=== PATIENT | female | born 1975 | race Caucasian/White ===

== ENCOUNTER 2020-05-16 12:03 | Outpatient (REF) | payer OTHER, SELFPAY ==
[2020-05-16 12:53] LABS: COVID-19 Test Negative (Negative)
== END 2020-05-16 12:04 | disposition home or self-care (01) ==
LOC: HO.LAB 12:03
PROVIDERS: Visit Provider Internal Medicine
DX: Z20.828 Contact with and (suspected) exposure to other viral communicable diseases (principal)
CPT/HCPCS: 87635

== ENCOUNTER 2020-05-23 11:01 | Outpatient (REF) | payer OTHER, SELFPAY ==
[2020-05-23 11:29] LABS: COVID-19 Test Negative (Negative)
== END 2020-05-23 11:02 | disposition home or self-care (01) ==
LOC: HO.LAB 11:01
PROVIDERS: PCP Physician Assistant; Visit Provider Internal Medicine
DX: Z20.828 Contact with and (suspected) exposure to other viral communicable diseases (principal)
CPT/HCPCS: 87635

== ENCOUNTER 2020-06-11 12:28 | Outpatient (REF) | payer OTHER, SELFPAY ==
[2020-06-11 12:57] LABS: COVID-19 Test Negative (Negative)
== END 2020-06-11 12:29 | disposition home or self-care (01) ==
LOC: HO.EMPCOV 12:28
PROVIDERS: Visit Provider Internal Medicine
DX: Z20.828 Contact with and (suspected) exposure to other viral communicable diseases (principal)
CPT/HCPCS: 87635; C9803

== ENCOUNTER 2020-07-16 07:10 | Outpatient (REF) | payer OTHER, SELFPAY ==
[2020-07-16 08:15] LABS: COVID-19 Test Negative (Negative)
== END 2020-07-16 07:11 | disposition home or self-care (01) ==
LOC: HO.EMPCOV 07:10
PROVIDERS: PCP Physician Assistant; Visit Provider Internal Medicine
DX: Z20.828 Contact with and (suspected) exposure to other viral communicable diseases (principal)
CPT/HCPCS: 87635; C9803

== ENCOUNTER 2020-08-29 16:06 | Outpatient (REF) | payer OTHER, SELFPAY ==
--- NOTE | ~2020-08-29 | MM_ITS ---
EXAMINATION: MM SCREENING DIGITAL BREAST TOMOSYNTHESIS, BILATERAL CLINICAL INFORMATION: Screening. Asymptomatic. The lifetime risk of breast cancer based on the Tyrer-Cuzick Model is 8.4%. COMPARISON: Mammography: 04/05/2018 TECHNIQUE: Digital breast tomosynthesis is performed in both the craniocaudal and mediolateral oblique views along with computer-aided detection (CAD). Synthesized 2D images are generated from the tomosynthesis. FINDINGS: There are scattered areas of fibroglandular density (ACR BI-RADS breast composition Category b). Changes of breast reduction surgery seen and appear stable. No new abnormal dominant mass or suspicious grouping of microcalcifications identified. Within the left axilla, there is a prominent lymph node with fatty cleft and possible mild cortical thickening. MM/MM tomosynthesis screening BI IMPRESSION: 1. Stable postsurgical change related to breast reduction surgery. ASSESSMENT: BI-RADS 2: Benign RECOMMENDATION: 1. Routine annual mammography screening. This patient's information was entered into a reminder system with a target due date for their next mammogram.
== END 2020-08-29 16:07 | disposition home or self-care (01) ==
LOC: HO.MAMMO 16:06
PROVIDERS: PCP Physician Assistant; Visit Provider Physician Assistant
DX: Z12.31 Encounter for screening mammogram for malignant neoplasm of breast (principal)
CPT/HCPCS: 77063; 77067

== ENCOUNTER 2021-07-13 13:31 | Outpatient (REF) | payer OTHER, SELFPAY ==
[2021-07-13 14:03] LABS: COVID-19 Test Negative (Negative)
== END 2021-07-13 13:32 | disposition home or self-care (01) ==
LOC: HO.LAB 13:31
PROVIDERS: PCP Physician Assistant; Visit Provider Internal Medicine
DX: Z20.822 Contact with and (suspected) exposure to COVID-19 (principal)
CPT/HCPCS: 36415; 87635

== ENCOUNTER 2022-06-30 12:34 | Outpatient (REF) | payer OTHER, SELFPAY ==
[2022-06-30 12:50] LABS: MANUAL DIFF FLAG NO
[2022-06-30 13:42] LABS: Basophils Absolute Auto 0.1 X10*3/uL (0.0-0.2); Basophils Percent Auto 0.6 % (0-2); Eosinophils Absolute Auto 0.1 X10*3/uL (0.0-0.4); Eosinophils Percent Auto 0.9 % (0-4); Hematocrit 28.4 % (37.0-47.0); Hemoglobin 7.8 g/dl (12.0-16.0); Imm Gran Abs Auto 0.02 X10*3/uL (0.00-0.03); Imm Gran Pct Auto 0.2 % (0.0-0.4); Lymphocytes Absolute Auto 2.2 X10*3/uL (1.2-4.9); Lymphocytes Percent Auto 26.5 % (20-40); Mean Corpuscular HGB Conc 27.5 g/dl (31.0-35.0); Mean Corpuscular Volume 65.4 fL (80.0-98.0); Mean Platelet Volume 9.6 fL (9.4-12.3); Monocytes Absolute Auto 0.5 X10*3/uL (0.1-1.2); Monocytes Percent Auto 5.8 % (2-11); Neutrophils Absolute Auto 5.4 x10*3/uL (2.0-8.3); Platelet Count 437 X10*3/uL (160-400); Red Blood Count 4.34 X10*6/uL (4.20-5.50); Red Cell Distribution Width 17.3 % (11.0-16.0); White Blood Count 8.1 X10*3/uL (4.8-10.8)
[2022-06-30 14:43] LABS: Alanine Aminotransferase 22 U/L (0-31); Albumin Level 4.7 g/dL (3.5-5.0); Alkaline Phosphatase 47 U/L (39-117); Anion Gap 11 (12-20); Aspartate Amino Transferase 13 U/L (5-31); Bilirubin Total 0.7 mg/dL (0.0-1.0); Blood Urea Nitrogen 15 mg/dL (9-16); Calcium 9.5 mg/dL (8.4-10.2); Carbon Dioxide 25 mmol/L (22-29); Chloride 106 mmol/L (96-108); Estimated Glomerular Filt Rate > 60; Glucose Random 85 mg/dL (60-115); Potassium 4.5 mmol/L (3.3-5.1); Sodium 137 mmol/L (135-145); TSH reflex Free T4 1.15 uIU/mL (0.32-4.0); Total Protein 7.5 g/dL (6.5-8.0)
== END 2022-06-30 12:35 | disposition home or self-care (01) ==
LOC: HO.LAB 12:34
PROVIDERS: PCP Physician Assistant; Visit Provider Nurse Practitioner Family
DX: R51.9 Headache, unspecified (principal)
CPT/HCPCS: 36415; 80053; 84443; 85025

== ENCOUNTER 2022-07-01 06:36 | Outpatient (REF) | payer OTHER, SELFPAY ==
[2022-07-01 08:08] LABS: Iron 22 mcg/dL (30-160); Percent Iron Saturation 4 % (15-50); Total Iron Binding Capacity 521 mcg/dL (228-428); Unsaturated Iron Binding 499 ug/dL
[2022-07-01 08:24] LABS: Ferritin < 2 ng/mL (10-250)
== END 2022-07-01 06:37 | disposition home or self-care (01) ==
LOC: HO.LAB 06:36
PROVIDERS: PCP Physician Assistant; Visit Provider Nurse Practitioner Family
DX: D64.9 Anemia, unspecified (principal)
CPT/HCPCS: 36415; 82728; 83540

== ENCOUNTER 2022-07-07 09:03 | Day surgery (SDC) | payer OTHER, SELFPAY ==
--- NOTE | 2022-07-06 11:46 | HO.ANESPROP2 ---
Documented by User: Ines Lr NP 07/06/22 11:47 HPI - Anesthesia Eval Consult details Narrative: 47yo F for Upper Endoscopy and Colonoscopy PMFSH Active Problems Active Problems: All Active Problems (Updated 06/30/22 @ 17:25 by HUONG Sanders) Anemia (Acute) Headache (Acute) Eczema (Acute) Screening for hypothyroidism (Acute) Screening for hypercholesterolemia (Acute) Screening for diabetes mellitus (DM) (Acute) Annual physical exam (Acute) JEFFREY (generalized anxiety disorder) (Acute) GERD (gastroesophageal reflux disease) (Acute) Past Medical History Medical History Anemia Eczema JEFFREY (generalized anxiety disorder) GERD (gastroesophageal reflux disease) Family History Family History Father Esophageal cancer Diabetes Mother Ovarian cancer Kidney malignancy Maternal Grandfather Colon cancer Maternal Grandmother Lung cancer Surgical History Surgical History H/O bilateral breast reduction surgery History of section History of tubal ligation Social History Social History Alcohol intake: current Alcohol intake frequency: holidays/special occasions only Patient Tobacco Use Status: Never used Tobacco Use of substances other than those prescribed or required for medical reasons: No Are you DNR?: No Advance Directives: No Advance Directives Information Provided: Yes Cognitive needs: No Hearing needs: No Vision needs: No Meds Allergies Allergy/AdvReac Type Severity Reaction Status Date / Time No Known Allergies Allergy Verified 06/30/22 11:59 Exam Exam Date and Time: July 06, 2022 1146 Pertinent Lab Results Pertinent Lab Results: Laboratory Tests 06/30/22 06/30/22 12:48 12:48 WBC 8.1 Hgb 7.8 L Hct 28.4 L Plt Count 437 H Sodium 137 Potassium 4.5 Chloride 106 Carbon Dioxide 25 BUN 15 Creatinine 0.72 Assessment and Plan Assessment Anesthesia Assessment: Chart Reviewed Documented by User: Vaishnavi Rizvi MD 07/07/22 10:56 PMFSH Past Medical History Medical History Anemia Eczema JEFFREY (generalized anxiety disorder) GERD (gastroesophageal reflux disease) Patient : No Family History Family History Father Esophageal cancer Diabetes Mother Ovarian cancer Kidney malignancy Maternal Grandfather Colon cancer Maternal Grandmother Lung cancer Surgical History Surgical History H/O bilateral breast reduction surgery History of section History of tubal ligation History of Problems with Anesthesia: No Social History Social History Alcohol intake: current Alcohol intake frequency: holidays/special occasions only Patient Tobacco Use Status: Never used Tobacco Use of substances other than those prescribed or required for medical reasons: No Are you DNR?: No Advance Directives: No Advance Directives Information Provided: Yes Cognitive needs: No Hearing needs: No Vision needs: No Meds Allergies Allergy/AdvReac Type Severity Reaction Status Date / Time No Known Allergies Allergy Verified 06/30/22 11:59 Exam Airway Mallampati Class: II TM Dist: >3cm Neck ROM: Full Heart: RRR Lungs: CTA Assessment and Plan Final Anesthetic Review History of Problems with Anesthesia: No NPO: Yes ASA Class: II Final Preanesthetic Review: No Changes in Pt Med Stat, Meds/Allgs Chart Reviewed, Consent Obtained/Reviewed and Anes Risks/Benef Reviewed Patient Risk: Low Procedure Risk: Low Anesthetic Plan Anesthetic Plan: MAC: Disposition: Standard PACU
[2022-07-07 09:22] VITALS: BMI 28.3
[2022-07-07 09:30] VITALS: BP 132/88; PULSE 96; RESP 16; TEMP 36.6; O2SAT 100
--- NOTE | 2022-07-07 09:31 | MHC.SHP ---
Pre-Procedural Eval Section A Date of Service: 07/07/22 Section B Chief Complaint: anemia, Details of Present Illness: iron def anemia, also has menorrhagia, hx of erosive gastritis as well Relevant Social History: None Present Medications: see Short Stay Collaborative assessment Medical History: Significant History (migraines ) History of Previous Operations: Relevant previous surgery/procedure and date(s) () Allergies: Allergies Allergy/AdvReac Type Severity Reaction Status Date / Time No Known Allergies Allergy Verified 06/30/22 11:59 Review of Systems Sugical H&P ROS: Negative: Constitution, Cardiovascular, Respiratory, Neurological, Psychiatric, Hem-Onc, Allergic/Immunologic, Gastrointestinal, Genitourinary, Musculoskeletal, Integumentary, Endocrine and Eyes/Ears/Nose/Throat Exam Surgical H&P Exam: Normal: HEENT, Normal: Heart, Normal: Lungs, Normal: Extremities, Normal: Abdomen, Normal: Skin and Normal: Neurological Plan Diagnosis/Plan: Unchanged I have reviewed the history and physical and performed a pertinent physical examination on my patient. No changes have occurred unless specified. EGD,colonoscopy for evaluation of iron def anemia. Time Spent With Patient Time: Total time managing care of this patient today ____ minutes.
[2022-07-07] MEDS: Lactated Ringers 1,000 ML 100 ML IVCONT (09:52)
--- NOTE | 2022-07-07 10:14 | W.PM.OPN ---
Operative Note Operative Note Date of Service: 07/07/22 Narrative: Operative Information Procedure Description: EGD, Colonoscopy Indication: iron def anemia Anesthesia: MAC FLEXIBLE TRANSORAL UPPER GASTROINTESTINAL ENDOSCOPY AND COLONOSCOPY PROCEDURE NOTE UPPER ENDOSCOPY Consent: Indications for the procedure and potential complications of bleeding, perforation, reaction to medications and missed diagnosis were discussed with the patient and informed consent was obtained. Instrument: Olympus GIF H 190 J mid size upper endoscope Monitoring: Vital signs and clinical assessment, continuous EKG monitoring, Pulse oximetry, Carbon Dioxide monitoring and blood pressure monitoring were done throughout the procedure. Procedure: The patient was placed in the left lateral decubitis position and pre-procedure medications were administered and a bite block was placed. The endoscope was inserted into the mouth and advanced under direct vision to the third part of duodenum. A careful inspection was made as the upper endoscope was withdrawn including a retroflexed examination of the proximal stomach; Findings and interventions are described below. Findings: Larynx:normal Esophagus: GE junction at 35 cm, diaphragm hiatus at 38 cm, consistent with 3 cm sliding hiatal hernia. 3 tongues of short segement appearing Barretts esophagus, biopsies taken as well as brushings for WATS 3D Stomach: patchy erythematous mucosa. Biopsies were obtained. Grade 2 flap valve on retroflexed examination of the cardia. Fundic gland polyps noted, some were large and biopsies taken Duodenum: Normal bulb and descending duodenum, bx taken Intervention: Biopsies as noted above COLONOSCOPY Instrument: Olympus variable stiffness pediatric scope 190L Colonoscopy Monitoring: Vital signs and clinical assessment, continuous EKG monitoring, Pulse oximetry, Carbon Dioxide monitoring and blood pressure monitoring were done throughout the procedure. Colon withdrawal time was 8 minutes. Procedure: The patient was placed in the left lateral decubitis position and pre-procedure medications were administered. After a digital rectal examination of the ano-rectum, the video colonoscope was inserted into the rectum and advanced through the colon to the cecum/TI. The colonoscope was slowly withdrawn in a retrograde panoramic fashion and the colon mucosa was carefully examined including a retroflexed view of the rectum. Findings and interventions are described below. Procedure Difficulty: easy but colon was tortuous Findings: Terminal Ileum-normal Cecum:normal Ascending Colon: normal Transverse Colon -normal Descending Colon:normal Sigmoid Colon: normal Rectum: Retroflexion with small internal hemorrhoids, grade I Anorectum - normal Colon preparation: [place] Bowel Preparation Scale Right colon; 2 Transverse colon: 3 Left colon; 3 (0 = Unprepared colon segment with mucosa not seen due to solid stool that cannot be cleared. 1 = Portion of mucosa of the colon segment seen, but other areas of the colon segment not well seen due to staining, residual stool and/or opaque liquid. 2 = Minor amount of residual staining, small fragments of stool and/or opaque liquid, but mucosa of colon segment seen well. 3 = Entire mucosa of colon segment seen well with no residual staining, small fragments of stool or opaque liquid) Impression and Post Procedure Diagnosis: Endoscopy Findings: fundic gland polyps barretts esophagus hiatal hernia gastritis Colonoscopy Findings: internal hemorrhoids Plan: Await Pathology results Repeat Colonoscopy in 10 years or earlier if clinically indicated High fiber diet leaflet avoid straining at stool, epsom salts and sitz bath, anusol supps or cream If barretts pos then repeat EGD in 3-5 yrs as long as no dysplasia o/p capsule endoscopy Above findings were reviewed with the patient and relevant handouts were provided if indicated.
[2022-07-07 11:14] VITALS: BP 101/65; PULSE 79; RESP 16; TEMP 36.3; O2SAT 98
[2022-07-07 11:29] VITALS: BP 111/70; PULSE 81; RESP 16; TEMP 36.3; O2SAT 100
[2022-07-07 11:44] VITALS: BP 110/70; PULSE 74; RESP 16; TEMP 36.8; O2SAT 100
--- NOTE | 2022-07-07 11:57 | HO.POSTANES ---
Post Anesthesia Evaluation Post Anesthesia Evaluation Vital Signs: Vital Signs Temp Pulse Resp BP Pulse Ox O2 Del Method 07/07/22 11:44 98.2 F 74 16 110/70 100 Room Air 07/07/22 11:29 97.3 F 81 16 111/70 100 Room Air 07/07/22 11:14 97.3 F 79 16 101/65 98 Room Air 07/07/22 09:30 97.9 F 96 16 132/88 100 Room Air Anesthesia: Monitored Mental Status: Awake Pain Control: Satisfactory Nausea/Vomiting: None Hydration: Adequate Anesthesia-Related Issues: No Anes. Related Issues
== END 2022-07-07 12:02 | disposition home or self-care (01) ==
PROVIDERS: PCP Physician Assistant; Visit Provider Internal Medicine Gastroenterology
PROC: (CPT 45378; principal; 2022-07-07 10:50)
DX: D50.9 Iron deficiency anemia, unspecified (principal); K64.0 First degree hemorrhoids; K22.70 Barrett's esophagus without dysplasia; K29.50 Unspecified chronic gastritis without bleeding; K31.7 Polyp of stomach and duodenum; K44.9 Diaphragmatic hernia without obstruction or gangrene; K21.9 Gastro-esophageal reflux disease without esophagitis; N92.0 Excessive and frequent menstruation with regular cycle; L30.9 Dermatitis, unspecified; F41.1 Generalized anxiety disorder; Z98.51 Tubal ligation status; Z79.899 Other long term (current) drug therapy
CPT/HCPCS: 45378; 43239; 88305; 88342

== ENCOUNTER 2022-07-12 09:41 | Outpatient (REF) | payer OTHER, SELFPAY ==
--- NOTE | ~2022-07-12 | CT_ITS ---
EXAMINATION: CT HEAD WITHOUT CONTRAST CLINICAL INFORMATION: Headache COMPARISON: None TECHNIQUE: Contiguous axial imaging was performed from the skull base to vertex without intravenous administration of contrast. This CT examination was performed using dose optimization techniques as appropriate, variously including the following: *Automated exposure control *Adjustment of mA and/or kV according to patient size (this includes techniques or standardized protocols for targeted exams where dose is matched to indication/reason for exam; i.e. extremities or head) *Use of iterative reconstruction technique DLP: 534 mGy-cm FINDINGS: Brain: There is no acute intra-axial, extra-axial bleed, masses or midline shift. There is no acute infarction in evolution. There is no edema. The lateral ventricles are symmetrical in size and configuration. The navarro to white matter difference is maintained. Bone windows reveal no calvarial abnormality. There is a small calcified lesion along the right frontal bone inner cortex likely small meningioma or dural calcification. The paranasal sinuses are well-aerated with minimal focal mucoperiosteal thickening left posterior ethmoid sinus. CT/CT head/brain wo IV con IMPRESSION: No acute intracranial process seen.
== END 2022-07-12 09:42 | disposition home or self-care (01) ==
LOC: HO.CT 09:41
PROVIDERS: PCP Physician Assistant; Visit Provider Nurse Practitioner Family
DX: R51.9 Headache, unspecified (principal)
CPT/HCPCS: 70450

== ENCOUNTER 2022-08-27 12:45 | Outpatient (REF) | payer OTHER, SELFPAY ==
--- NOTE | ~2022-08-27 | US_ITS ---
EXAMINATION: US PELVIS CLINICAL INFORMATION: Uterine fibroids. COMPARISON: None. TECHNIQUE: Ultrasound of the pelvis is performed using both transabdominal and transvaginal transducers along with Doppler. Transvaginal imaging is performed due to inadequate visualization transabdominally. FINDINGS: UTERUS: The uterus is anteverted and possibly septate/bicornuate measuring 12.1 x 5.1 x 7.1 cm. The double wall endometrial thickness is 12-13 mm. The uterus is smooth in contour and has normal myometrial echogenicity. A fundal fibroid is seen measuring 3.0 x 1.0 x 2.1 cm. An additional fibroid is seen in the left uterine body measuring 3.1 x 3.1 x 3.2 cm. ADNEXA: Only the right ovary was seen and measured 2.3 x 1.6 x 1.7 cm for a volume of 3.3 mL and appeared normal. The left ovary could not be seen. No free intraperitoneal fluid. US/US pelvic and transvaginal IMPRESSION: Uterine fibroids.
== END 2022-08-27 12:46 | disposition home or self-care (01) ==
LOC: HO.US 12:45
PROVIDERS: Visit Provider Obstetrics & Gynecology
DX: N92.0 Excessive and frequent menstruation with regular cycle (principal); D21.9 Benign neoplasm of connective and other soft tissue, unspecified
CPT/HCPCS: 76830; 76856

== ENCOUNTER 2022-10-01 08:45 | Outpatient (REF) | payer OTHER, SELFPAY ==
--- NOTE | ~2022-10-01 | MM_ITS ---
EXAMINATION: MM SCREENING DIGITAL BREAST TOMOSYNTHESIS, BILATERAL CLINICAL INFORMATION: Screening. Asymptomatic. Status post reduction mammoplasty. The lifetime risk of breast cancer based on the Tyrer-Cuzick Model is 7.8%. COMPARISON: Mammography: August 29, 2020 and April 05, 2018 TECHNIQUE: Digital breast tomosynthesis is performed in both the craniocaudal and mediolateral oblique views along with computer-aided detection (CAD). Synthesized 2D images are generated from the tomosynthesis. FINDINGS: There are scattered areas of fibroglandular density (ACR BI-RADS breast composition Category b). There are no new significant masses, abnormal calcifications, or other abnormalities. Stable postsurgical change noted. MM/MM tomosynthesis screening BI IMPRESSION: No significant changes from prior exam. ASSESSMENT: BI-RADS 2: Benign RECOMMENDATION: Routine annual mammography screening. This patient's information was entered into a reminder system with a target due date for their next mammogram.
== END 2022-10-01 08:46 | disposition home or self-care (01) ==
LOC: HO.MAMMO 08:45
PROVIDERS: PCP Physician Assistant; Visit Provider Obstetrics & Gynecology
DX: Z12.31 Encounter for screening mammogram for malignant neoplasm of breast (principal)
CPT/HCPCS: 77063; 77067

== ENCOUNTER 2022-10-02 08:31 | Outpatient (REF) | payer OTHER, SELFPAY ==
[2022-10-02 09:58] LABS: Hemoglobin 13.6 g/dl (12.0-16.0); Mean Corpuscular HGB Conc 33.2 g/dl (31.0-35.0); Mean Corpuscular Hemoglobin 28.1 pg (27.0-33.0); Mean Corpuscular Volume 84.7 fL (80.0-98.0); Mean Platelet Volume 9.5 fL (9.4-12.3); Platelet Count 337 X10*3/uL (160-400); Red Blood Count 4.84 X10*6/uL (4.20-5.50); Red Cell Distribution Width 14.3 % (11.0-16.0); White Blood Count 7.1 X10*3/uL (4.8-10.8)
[2022-10-02 12:35] LABS: Iron 49 mcg/dL (30-160); Percent Iron Saturation 14 % (15-50); Total Iron Binding Capacity 341 mcg/dL (228-428); Unsaturated Iron Binding 292 ug/dL
[2022-10-02 12:57] LABS: Ferritin 20 ng/mL (10-250)
== END 2022-10-02 08:32 | disposition home or self-care (01) ==
LOC: HO.LAB 08:31
PROVIDERS: Nurse Practitioner Family; PCP Physician Assistant; Visit Provider Physician Assistant
DX: D64.9 Anemia, unspecified (principal)
CPT/HCPCS: 36415; 82728; 83540; 85027

== ENCOUNTER 2023-05-10 14:02 | Outpatient (AMB) | payer OTHER, SELFPAY ==
--- NOTE | 2023-05-10 14:10 | A.OFFPC_ITS ---
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 Accompanied by: Self / Same As Patient Allergies bupropion [From Wellbutrin] Adverse Reaction (Mild, Verified 05/10/23 14:35) Agitated Medication List - Last Reconciled 05/10/23 by Kennedy Hoff PA-C No Known Home Meds Tobacco use date assessed: 05/10/23 Dental Screening Dental Screen Date: 05/10/23 Did you have a dental visit in the last 12 months?: Yes Did you have a dental problem in the last 6 months where you did not have access to dental care?: No Was dental information given to patient?: Patient has dentist HPI follow up 2 HPI Details Patient is a 48-year-old female here today for a follow-up visit. Patient's past medical history significant for history iron deficiency anemia, GERD, major depressive disorder and migraines. Concerns--> she reports over the last several months noting some here thinning, weight gain, fatigue, night sweats moodiness, heavy regular menses. She is concerned she has perimenopause over has thyroid issue. Of note does have a history of iron deficiency anemia to which was corrected with iron supplementation in the past. Of note does have history of first-degree relative with ovarian cancer. Has been following a scanning clerk though would like a 2nd opinion here at [place] scanning clerk office. Has had pelvic ultrasound is a did show uterine fibroids though no ovarian abnormalities. .. 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 Of note patient's father did have esophageal cancer. She is concerned about using PPI therapy and daily basis. Laboratory Tests 06/30/22 07/01/22 10/02/22 12:48 06:40 08:41 Hgb 7.8 L 13.6 D Iron 22 L 10/02/22 08:41 Hgb Iron 49 PFSH Medical History Anemia Eczema JEFFREY (generalized anxiety disorder) GERD (gastroesophageal reflux disease) Surgical History History of tubal ligation H/O bilateral breast reduction surgery History of section Family History Father Esophageal cancer Diabetes Mother Ovarian cancer Kidney malignancy Maternal Grandfather Colon cancer Maternal Grandmother Lung cancer Social History Housing: House Alcohol intake: current Alcohol intake frequency: holidays/special occasions only Patient Tobacco Use Status: Never used Tobacco e-Cigarette/Vaping Use: Never Used service: No Current occupational status: employed Cognitive needs: No Hearing needs: No Vision needs: No Questionnaire PHQ-9 Over the last 2 weeks, how often have you been bothered by any of the following problems? 1. Little interest or pleasure in doing things: not at all 2. Feeling down, depressed, or hopeless: not at all 3. Trouble falling or staying asleep, or sleeping too much: not at all 4. Feeling tired or having little energy: not at all 5. Poor appetite or overeating: not at all 6. Feeling bad about yourself - or that you are a failure or have let yourself or your family down: not at all 7. Trouble concentrating on things, such as reading the newspaper or watching television: not at all 8. Moving or speaking so slowly that other people could have noticed. Or the opposite - being so fidgety or restless that you have been moving around a lot more than usual: not at all 9. Thoughts that you would be better off or of hurting yourself in some way: not at all Total score: 0 Depression Screening Interpretation: Negative Depression Screening Done: Yes 18661 - PHQ-9 Billing: Yes Source: Developed by Drs. Ricardo Aguilar, Rachel Baird, Ruben Edwards and colleagues, with an educational shavonne from [employer]. Thrive Questionnaire Date Thrive assessed: 05/10/23 I am a: Patient What is your living situation today?: I have a steady place to live Within the past 12 months, did the food you bought not last and you didn't have the money to get more?: Never true Within the past 12 months, did you worry whether your food would run out before you got money to buy more?: Never true Do you have trouble paying for medicines?: No Do you have trouble getting transportation to medical appointments?: No Do you have trouble paying your heating and electricity bill?: No Do you have trouble taking care of your child, family member or friend?: No Do you have trouble with day-to-day activities such as bathing, preparing meals, shopping, managing finances, etc.?: No Are you currently unemployed and looking for a job?: No Are you interested in more education?: No Please select the resources that you would like help with: None Currently or been in a relationship where the following occur: no concerns reported AUDIT C Alcohol Use Questionnaire (AUDIT-C) 1. How often do you have a drink containing alcohol?: Monthly or less 2. How many drinks containing alcohol do you have on a typical day when you are drinking?: 1 or 2 3. How often do you have six or more drinks on one occasion?: Never Total Score: 1 JEFFREY-7 AMB Questionnaire JEFFREY-7 Date JEFFREY - 7 assessed: 05/10/23 Feeling nervous, anxious, or on edge: 0 = Not at all Not being able to stop or control worryin = Not at all Worrying too much about different things: 0 = Not at all Trouble relaxin = Not at all Being so restless that it is hard to sit still: 0 = Not at all Becoming easily annoyed or irritable: 0 = Not at all Feeling afraid as if something awful might happen: 0 = Not at all Total JEFFREY-7 score (0-4 normal; 5-9 mild; 10-14 moderate; 15-21 severe): 0 Source: Developed by Drs. Ricardo Aguilar, Rachel Baird, Rbuen Edwards and colleagues, with an educational shavonne from [employer]. JEFFREY-7 Assessment Billing JEFFREY-7 Assessment Tool: JEFFREY-7 Assessment 72335 Review of Systems Const Reports headache(s) Eyes Denies loss of vision ENT Denies vertigo, Denies dizziness, Reports headache(s) and Denies sore throat Card Denies chest pain, Denies leg edema and Denies lightheadedness Resp Denies cough, Denies hemoptysis and Denies wheezing GI Reports abdominal pain, Denies melena, Reports constipation, Reports diarrhea and Denies vomiting Reports abnormal vaginal bleeding, Denies urinary frequency, Denies dysuria and Denies urinary urgency Musc Denies arthralgias, Denies joint swelling, Denies numbness and Denies tingling Neuro Denies Abnormal speech present, Denies behavioral changes, Denies vertigo, Denies dizziness, Reports headache(s), Denies loss of vision, Denies memory lo ss, Denies numbness and Denies tingling Psych Denies anxiety, Denies behavioral changes, Denies depression, Denies memory loss and Denies panic attacks Ronald/Lymph Denies easy bleeding and Denies easy bruising Aller/Immun Denies wheezing Physical exam (Primary Care) Vital Signs: Last Vital Signs Pulse 80 05/10/23 14:14 Resp 16 05/10/23 14:14 BP 118/78 05/10/23 14:14 Pulse Ox 98 05/10/23 14:14 Oxygen Delivery Method Room Air 05/10/23 14:14 BMI result Body Mass Index 29.0 Tobacco/Smoking Status: Tobacco use Status Tobacco use date assessed 05/10/23 05/10/23 14:19 Patient Tobacco Use Status Never used Tobacco 05/10/23 14:10 e-Cigarette/Vaping Use Never Used 05/10/23 14:19 PHQ-9: PHQ-9 Score PHQ-9: Total score 0 05/10/23 14:27 Depression Screening Interpretation: Negative Thrive Assessment: Date of Thrive Assessment Date Thrive assessed 05/10/23 05/10/23 14:19 Currently or been in a relationship where the following occur: no concerns reported Const General: healthy appearing, no acute distress, alert and awake Nutritional Appearance: well nourished Orientation/consciousness: oriented to person, oriented to place and oriented to time [facility] Ears: TM's normal bilaterally General nose exam: Normal nasal mucous membranes and turbinates present Eyes Conjunctivae: conjunctivae normal Sclerae: sclerae normal Pupils: Equal, round and reactive pupils present Neck Neck: Yes no lymphadenopathy and Yes no JVD Thyroid: Thyroid normal Carotids: no bruits Resp Effort & Inspection: normal respiratory effort and not tachypneic Auscultation: no crackles, no rales, no rhonchi and no wheezes Cardio Rate: regular rate Rhythm: regular rhythm Heart sounds: no murmurs and normal S1 and S2 GI Palpation (GI): Soft to palpation, nontender, no hepatomegaly and no splenomegaly Auscultation: normal bowel sounds Skin General skin exam: no rashes or lesions noted and dry skin Neuro General: oriented to person, oriented to place and oriented to time Cranial nerves: Yes Equal, round and reactive pupils present Speech: No Abnormal speech present Gait exam (Neuro): Normal gait present Motor exam (neuro): no tremor noted Extrem Right upper extremity: full ROM Left upper extremity: full ROM Right lower extremity: full ROM; no edema Left lower extremity: full ROM; no edema Psych Mental Status: mental status grossly normal Speech and movement: Normal speech and movement present Affect: normal affect Attitude: cooperative Thought process: Normal thought process present Assessment and Plan Assessment & Plan (1) Anemia: Code(s): D64.9 - Anemia, unspecified Qualifiers: Anemia type: iron deficiency Iron deficiency anemia type: unspecified iron deficiency Qualified Code(s): D50.9 - Iron deficiency anemia, unspecified Plan: Likely due to heavy menses. Unfortunately continues to have heavy irregular menses. Was corrected with p.o. iron supplementation. Will recheck CBC and iron studies. (2) Screening for diabetes mellitus (DM): Code(s): Z13.1 - Encounter for screening for diabetes mellitus (3) Family history of ovarian cancer: Code(s): Z80.41 - Family history of malignant neoplasm of ovary Plan: Of note patient does have a family history of ovarian cancer. Mother diagnosed with ovarian cancer. Will check a CA 125 (4) Hair thinning: Code(s): L65.9 - Nonscarring hair loss, unspecified Plan: Patient has noted some hair thinning as of late. Also noted some weight gain that she has been having difficulty shutting. Will check a thyroid stimulating hormone to ensure she is not hypothyroid. (5) Heavy menses: Code(s): N92.0 - Excessive and frequent menstruation with regular cycle Qualifiers: Menorrhagia type: with regular cycle Qualified Code(s): N92.0 - Excessive and frequent menstruation with regular cycle (6) Menopausal symptom: Code(s): N95.1 - Menopausal and female climacteric states Plan: Patient's signs and symptoms are difficult to tease out though may have a thyroid issue verses being perimenopausal. She does report some moodiness thus will try SSRI therapy with fluoxetine 10 mg to help with her dysphoria. Orders: Orders Comprehensive [place]. Panel Fast Today Z13.1 - Encounter for screening for diabetes mellitus CA-125 Today Z80.41 - Family history of malignant neoplasm of ovary TSH reflex Free T4 Today L65.9 - Nonscarring hair loss, unspecified Referrals TRAVEL SALES CONSULTANT Referral N92.0 - Excessive and frequent menstruation with regular cycle, Z80.41 - Family history of malignant neoplasm of ovary Medications: New fluoxetine 10 mg PO DAILY 30 days 30 caps 3RF N95.1 - Menopausal and female climacteric states Coding Level of Care Code Est Pt Level 4 (96089) Diagnoses Iron deficiency anemia, unspecified iron deficiency anemia type D50.9 Anemia type: iron deficiency Iron deficiency anemia type: unspecified iron deficiency Screening for diabetes mellitus (DM) Z13.1 Family history of ovarian cancer Z80.41 Hair thinning L65.9 Menorrhagia with regular cycle N92.0 Menorrhagia type: with regular cycle Menopausal symptom N95.1 Additional Codes JEFFREY-7 Assessment Billing - JEFFREY-7 Assessment Tool: JEFFREY-7 Assessment 39933 ([id number])
[2023-05-10 14:14] VITALS: BP 118/78; PULSE 80; RESP 16; O2SAT 98; BMI 29.0
== END 2023-05-10 14:51 | disposition home or self-care (01) ==
PROVIDERS: PCP Physician Assistant; Visit Provider Physician Assistant
DX: D50.9 Iron deficiency anemia, unspecified (principal); Z13.1 Encounter for screening for diabetes mellitus; Z80.41 Family history of malignant neoplasm of ovary; L65.9 Nonscarring hair loss, unspecified; N92.0 Excessive and frequent menstruation with regular cycle; N95.1 Menopausal and female climacteric states
CPT/HCPCS: 99214

== ENCOUNTER 2023-05-11 06:07 | Outpatient (REF) | payer OTHER, SELFPAY ==
[2023-05-11 08:19] LABS: Alanine Aminotransferase 16 U/L (0-31); Albumin Level 4.8 g/dL (3.5-5.0); Alkaline Phosphatase 44 U/L (39-117); Anion Gap 13 (12-20); Aspartate Amino Transferase 13 U/L (5-31); Bilirubin Total 0.7 mg/dL (0.0-1.0); Blood Urea Nitrogen 22 mg/dL (9-16); Calcium 9.8 mg/dL (8.4-10.2); Carbon Dioxide 21 mmol/L (22-29); Chloride 108 mmol/L (96-108); Estimated Glomerular Filt Rate > 60; Glucose Fasting 95 mg/dL (60-99); Sodium 138 mmol/L (135-145)
[2023-05-11 08:39] LABS: TSH reflex Free T4 2.06 uIU/mL (0.32-4.0)
[2023-05-12 09:54] LABS: CA-125 12 U/mL (<35)
== END 2023-05-11 06:08 | disposition home or self-care (01) ==
LOC: HO.LAB 06:07
PROVIDERS: PCP Physician Assistant; Visit Provider Physician Assistant
DX: Z13.1 Encounter for screening for diabetes mellitus (principal); L65.9 Nonscarring hair loss, unspecified; Z80.41 Family history of malignant neoplasm of ovary
CPT/HCPCS: 36415; 80053; 84443; 86304

== ENCOUNTER 2023-07-12 15:07 | Outpatient (AMB) | payer OTHER, SELFPAY ==
[2023-07-12 15:16] VITALS: BP 126/78; PULSE 80; RESP 17; BMI 28.9
--- NOTE | 2023-07-12 15:16 | MHC.PC.OV ---
Vital Signs 07/12/23 15:16 Height 5 ft 3 in Weight 163 lb BMI 28.9 BP 126/78 Blood Pressure Location Lt brachial Position Sitting Respiration 17 Pulse 80 Pulse Source Palpation Intake Visit Reasons: pe Intake Note: Patient is here today for a physical. 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 Accompanied by: Self / Same As Patient Allergies bupropion [From Wellbutrin] Adverse Reaction (Mild, Verified 07/12/23 15:39) Agitated Medication List - Last Reconciled 07/12/23 by Kennedy Hoff PA-C fluoxetine 10 mg PO DAILY 30 days fluoxetine 10 mg PO DAILY 30 days No Known Home Meds Tobacco use date assessed: 05/10/23 Dental Screening Dental Screen Date: 07/12/23 Did you have a dental visit in the last 12 months?: Yes Did you have a dental problem in the last 6 months where you did not have access to dental care?: No Was dental information given to patient?: Patient has dentist HPI pe HPI Details Patient is a 48-year-old female here today for a a routine annual physical Patient's past medical history significant for history iron deficiency anemia, GERD, major depressive disorder and migraines. Concerns--> reports having more frequent headaches located behind right eye. Does use hjlz-cea-mhughge medication without much affect. She has had headaches over last several years. Of note she did get CT of head in 2019 to without any intracranial pathology. .. Weight: BMI today 28.9. She is still discouraged that she is not able to lose any weight. She reports she has a good diet and exercises several times a week. .. 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 Of note patient's father did have esophageal cancer. She is concerned about using PPI therapy and daily basis. Mammogram: Done in September of 2022 BI-RADS 1 FACILITIES MAINTENANCE ASSISTANT: needs to reschedule- will try to reschedule with [place] signing agent Colonoscopy: Done in 2021 normal repeat 10 years Laboratory Tests 10/02/22 05/11/23 08:41 06:18 Hgb 13.6 D Creatinine 0.84 CA 125 Antigen 12 TSH 2.06 PFSH Medical History (Updated 07/12/23 @ 15:57 by Kennedy Hoff PA-C) Meningioma Anemia Eczema JEFFREY (generalized anxiety disorder) GERD (gastroesophageal reflux disease) Surgical History History of tubal ligation H/O bilateral breast reduction surgery History of section Family History Father Esophageal cancer Diabetes Mother Ovarian cancer Kidney malignancy Maternal Grandfather Colon cancer Maternal Grandmother Lung cancer Social History (Updated 07/12/23 @ 15:43 by Kennedy Hoff PA-C) Housing: House Alcohol intake: current Alcohol intake frequency: holidays/special occasions only Patient Tobacco Use Status: Never used Tobacco e-Cigarette/Vaping Use: Never Used service: No Current occupational status: employed Current occupation: [employer] Cognitive needs: No Hearing needs: No Vision needs: No Questionnaire Thrive Questionnaire Date Thrive assessed: 05/10/23 JEFFREY-7 AMB Questionnaire JEFFREY-7 Date JEFFREY - 7 assessed: 05/10/23 Source: Developed by Drs. Ricardo Aguilar, Rachel Baird, Ruben Edwards and colleagues, with an educational shavonne from [employer]. Review of Systems Const Denies body aches, Denies chills, Denies excessive sweating, Denies fatigue, Denies fever(s) and Reports headache(s) Eyes Denies blurry vision ENT Denies dysphagia, Denies vertigo, Denies dizziness, Reports headache(s), Denies hearing loss and Denies tinnitus Card Denies chest pain, Denies chest pain with activity, Denies syncope, Denies irregular heart rhythm and Denies dyspnea Resp Denies chest congestion, Denies cough, Denies hemoptysis, Denies dyspnea and Denies wheezing GI Denies abdominal pain, Denies melena, Denies hematochezia, Denies coffee ground emesis, Denies dysphagia, Denies diarrhea, Denies nausea and Denies vomiting Denies urinary frequency, Denies dysuria, Denies urinary hesitancy and Denies urinary urgency Musc Denies arthralgias, Denies limited range of motion, Denies muscle cramps and Denies muscle weakness Skin/Breast Denies rash and Denies skin ulcer Neuro Denies Abnormal speech present, Denies confusion, Denies vertigo, Denies dizziness, Denies syncope, Reports headache(s), Denies memory loss and Denies seizure-like activity Psych Denies anxiety, Denies confusion, Denies depression, Denies memory loss, Denies panic attacks and Denies paranoia Endo Denies excessive sweating, Denies fatigue, Denies flushing, Denies polydipsia and Denies polyuria Aller/Immun Denies wheezing Physical exam (Primary Care) Vital Signs: Last Vital Signs Pulse 80 07/12/23 15:16 Resp 17 07/12/23 15:16 BP 126/78 07/12/23 15:16 BMI result Body Mass Index 28.9 Tobacco/Smoking Status: Tobacco use Status Tobacco use date assessed 05/10/23 07/12/23 15:24 Patient Tobacco Use Status Never used Tobacco 07/12/23 15:43 e-Cigarette/Vaping Use Never Used 07/12/23 15:43 Thrive Assessment: Date of Thrive Assessment Date Thrive assessed 05/10/23 07/12/23 15:24 Const General: cooperative, comfortable, no acute distress, alert and awake; No confusion Orientation/consciousness: oriented to person, oriented to place, patient oriented x3 and No confusion HENMT Head: Yes normocephalic Ears: external ears normal and TM's normal bilaterally Face and sinus: No sinus tenderness Mouth: Normal oral and palatal mucosa present and tongue normal Teeth and gingiva: dentition normal and gingiva normal Throat: Yes posterior oropharynx normal, Yes tonsils normal and Yes uvula midline Eyes Conjunctivae: conjunctivae normal Sclerae: sclerae normal Pupils: Equal, round and reactive pupils present EOM: EOMs intact bilaterally Direct Ophthalmoscopy: No no photophobia Neck Neck: Yes no lymphadenopathy, No tender and Yes no JVD Thyroid: Thyroid normal Carotids: no bruits Chest Chest palpation & inspection: no tenderness Resp Effort & Inspection: normal respiratory effort, no audible wheezes, not labored and no stridor Auscultation: no crackles, no rales, no rhonchi and no wheezes Cardio Jugular venous distension: no JVD Rate: regular rate, not bradycardic and not tachycardic Rhythm: regular rhythm Bruits: no carotid bruits Peripheral pulses: Peripheral pulses 2+ throughout GI Inspection: Yes normal to inspection, No abdominal wall ecchymosis and No visible herniation Palpation (GI): Soft to palpation, nontender, no guarding, not rigid and No hepatosplenomegaly present Auscultation: normoactive bowel sounds General: Yes no CVA tenderness Back/Spine/Pelvis Back: no CVA tenderness and No back tenderness Cervical Spine: cervical ROM normal Thoracic/Lumbar Spine: thoracic and lumbar spine normal to inspection, straight leg raise negative bilaterally, No thoraco-lumbar ROM limited and No lumbar spinal tenderness Skin Lesions: no lesions Rashes: no rashes Wounds: no wounds Neuro General: oriented to person, oriented to place, patient oriented x3, CN's II-XI intact bilaterally and No confusion Cranial nerves: Yes Equal, round and reactive pupils present and Yes Normal accommodation reflex present Cognition (Neuro): normal cognition Speech: No Abnormal speech present Gait exam (Neuro): Normal gait present Motor exam (neuro): 5/5 motor strength present throughout Extrem Right upper extremity: full ROM; no cyanosis Left upper extremity: full ROM; no cyanosis Right lower extremity: no edema Left lower extremity: no edema Psych Appearance: grossly normal Mental Status: mental status grossly normal Affect: normal affect Attitude: cooperative Thought process: Normal thought process present Assessment and Plan Assessment & Plan (1) Annual physical exam: Code(s): Z00.00 - Encounter for general adult medical examination without abnormal findings (2) Screening for diabetes mellitus (DM): Code(s): Z13.1 - Encounter for screening for diabetes mellitus (3) Menopausal symptom: Code(s): N95.1 - Menopausal and female climacteric states Plan: Has been started on fluoxetine 10 mg, she denies any side affect. Again still discouraged she is not able to lose any weight. She attributes this to perhaps being perimenopausal. She would like to continue fluoxetine 10 mg for now.. (4) Frequent headaches: Code(s): R51.9 - Headache, unspecified Plan: Reports having frequent headaches more than usual. Unclear trigger at this time. She does use [id number]-nyf-bmampsm analgesics with only minimal affect. Orders: Orders Comprehensive [place]. Panel Fast 07/12/23 Z13.1 - Encounter for screening for diabetes mellitus IRON PROFILE 07/12/23 D50.9 - Iron deficiency anemia, unspecified Vitamin B12 and Folate 07/12/23 D50.9 - Iron deficiency anemia, unspecified, E53.8 - Deficiency of other specified B group vitamins Complete Blood Count no Diff 07/12/23 D50.9 - Iron deficiency anemia, unspecified Medications: New magnesium oxide 250 mg PO BID 30 days 60 tabs 3RF R51.9 - Headache, unspecified riboflavin (vitamin B2) 50 mg PO DAILY 30 days 30 tabs 3RF R51.9 - Headache, unspecified [id number] 50-325-40 mg 1 tab PO TID 4 days PRN 12 tabs 0RF pain R51.9 - Headache, unspecified Refilled fluoxetine 10 mg PO DAILY 30 days 30 caps 3RF N95.1 - Menopausal and female climacteric states Coding Level of Care Code Est Pt Prev Care 40-64y(61503) Diagnoses Annual physical exam Z00.00 Screening for diabetes mellitus (DM) Z13.1 Menopausal symptom N95.1 Frequent headaches R51.9
== END 2023-07-12 15:56 | disposition home or self-care (01) ==
PROVIDERS: PCP Physician Assistant; Visit Provider Physician Assistant
DX: Z00.00 Encounter for general adult medical examination without abnormal findings (principal); Z13.1 Encounter for screening for diabetes mellitus; N95.1 Menopausal and female climacteric states; R51.9 Headache, unspecified
CPT/HCPCS: 99396

== ENCOUNTER 2023-09-07 08:58 | Outpatient (AMB) | payer OTHER, SELFPAY ==
--- NOTE | 2023-09-07 08:58 | A.OFFPC_ITS ---
Vital Signs 3 09/07/23 08:59 Height 5 ft 3 in Weight 161 lb 2 oz BMI 28.5 BP 142/86 H Blood Pressure Location Lt brachial Position Sitting Pulse 64 Pulse Source Pulse Oximeter Pulse Oximetry (%) 99 Oxygen Delivery Method Room Air Intake Visit Reasons: right lower Q pain Intake Note: The patient has been experiencing discomfort in the right midsection of the abdomen for the last few days. 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 Accompanied by: Self / Same As Patient Allergies bupropion [From Wellbutrin] Adverse Reaction (Mild, Verified 09/07/23 09:23) Agitated Medication List - Last Reconciled 09/07/23 by Kennedy Hoff PA-C fluoxetine 10 mg PO DAILY 30 days magnesium oxide 250 mg PO BID 30 days norethindrone-e.estradiol-iron 1 mg-20 mcg (21)/75 mg (7) ([place] Fe 08/14 (28)) 1 tab PO DAILY riboflavin (vitamin B2) 50 mg PO DAILY 30 days Tobacco use date assessed: 09/07/23 Dental Screening Dental Screen Date: 09/07/23 Did you have a dental visit in the last 12 months?: Yes Did you have a dental problem in the last 6 months where you did not have access to dental care?: No Was dental information given to patient?: Patient has dentist HPI right lower Q pain 2 HPI0 Details Patient is a 48-year-old female here today a walk-in urgent visit. She reports having right lower mid abdomen pain over the last 3 days. She reports she is somewhat nauseous though has not had any vomiting, diarrhea or notable fevers. She is concerned about this as her pain is located in region of her appendix. She denies any body in her household with similar symptoms. Also reports feeling somewhat more depressed as of late and attributes this to the winter season. She is interested in higher dose of the SSRI therapy. [facility] Medical History (Updated 09/07/23 @ 09:33 by Kennedy Hoff PA-C) Meningioma Anemia Eczema JEFFREY (generalized anxiety disorder) GERD (gastroesophageal reflux disease) Surgical History History of tubal ligation H/O bilateral breast reduction surgery History of section Family History Father Esophageal cancer Diabetes Mother Ovarian cancer Kidney malignancy Maternal Grandfather Colon cancer Maternal Grandmother Lung cancer Social History Housing: House Alcohol intake: current Alcohol intake frequency: holidays/special occasions only Patient Tobacco Use Status: Never used Tobacco e-Cigarette/Vaping Use: Never Used service: No Current occupational status: employed Current occupation: Resp Therapy Cognitive needs: No Hearing needs: No Vision needs: No Questionnaire PHQ-9 Over the last 2 weeks, how often have you been bothered by any of the following problems? 1. Little interest or pleasure in doing things: not at all 2. Feeling down, depressed, or hopeless: not at all 3. Trouble falling or staying asleep, or sleeping too much: not at all 4. Feeling tired or having little energy: not at all 5. Poor appetite or overeating: not at all 6. Feeling bad about yourself - or that you are a failure or have let yourself or your family down: not at all 7. Trouble concentrating on things, such as reading the newspaper or watching television: not at all 8. Moving or speaking so slowly that other people could have noticed. Or the opposite - being so fidgety or restless that you have been moving around a lot more than usual: not at all 9. Thoughts that you would be better off or of hurting yourself in some way: not at all Total score: 0 Depression Screening Interpretation: Negative Depression Screening Done: Yes 39006 - PHQ-9 Billing: Yes Source: Developed by Drs. Ricardo Aguilar, Rachel Baird, Ruben Edwards and colleagues, with an educational shavonne from [employer] Thrive Questionnaire Date Thrive assessed: 09/07/23 I am a: Patient What is your living situation today?: I have a steady place to live Within the past 12 months, did the food you bought not last and you didn't have the money to get more?: Never true Within the past 12 months, did you worry whether your food would run out before you got money to buy more?: Never true Do you have trouble paying for medicines?: No Do you have trouble getting transportation to medical appointments?: No Do you have trouble paying your heating and electricity bill?: No Do you have trouble taking care of your child, family member or friend?: No Do you have trouble with day-to-day activities such as bathing, preparing meals, shopping, managing finances, etc.?: No Are you currently unemployed and looking for a job?: No Are you interested in more education?: No Please select the resources that you would like help with: None Currently or been in a relationship where the following occur: no concerns reported THRIVE Score: 0 AUDIT C Alcohol Use Questionnaire (AUDIT-C) 1. How often do you have a drink containing alcohol?: Monthly or less 2. How many drinks containing alcohol do you have on a typical day when you are drinking?: 1 or 2 3. How often do you have six or more drinks on one occasion?: Never Total Score: 1 JEFFREY-7 AMB Questionnaire JEFFREY-7 Date JEFFREY - 7 assessed: 09/07/23 Feeling nervous, anxious, or on edge: 0 = Not at all Not being able to stop or control worryin = Not at all Worrying too much about different things: 0 = Not at all Trouble relaxin = Not at all Being so restless that it is hard to sit still: 0 = Not at all Becoming easily annoyed or irritable: 0 = Not at all Feeling afraid as if something awful might happen: 0 = Not at all Total JEFFREY-7 score (0-4 normal; 5-9 mild; 10-14 moderate; 15-21 severe): 0 Source: Developed by Drs. Ricardo Aguilar, Rachel Baird, Ruben Edwards and colleagues, with an educational shavonne from [employer] ([employer] JEFFREY-7 Assessment Billing JEFFREY-7 Assessment Tool: JEFFREY-7 Assessment 20951 Review of Systems Const Denies headache(s) Eyes Denies loss of vision ENT Denies vertigo, Denies dizziness, Denies headache(s) and Denies sore throat Card Denies chest pain, Denies leg edema and Denies lightheadedness Resp Denies cough, Denies hemoptysis and Denies wheezing GI Denies abdominal pain, Denies melena, Denies constipation, Denies diarrhea and Denies vomiting Denies urinary frequency, Denies dysuria and Denies urinary urgency Musc Denies arthralgias, Denies joint swelling, Denies numbness and Denies tingling Neuro Denies Abnormal speech present, Denies behavioral changes, Denies vertigo, Denies dizziness, Denies headache(s), Denies loss of vision, Denies memory loss, Denies numbness and Denies tingling Psych Denies anxiety, Denies behavioral changes, Denies depression, Denies memory loss and Denies panic attacks Ronald/Lymph Denies easy bleeding and Denies easy bruising Aller/Immun Denies wheezing Physical exam (Primary Care) Vital Signs: Last Vital Signs Pulse 64 09/07/23 08:59 BP 142/86 H 09/07/23 08:59 Pulse Ox 99 09/07/23 08:59 Oxygen Delivery Method Room Air 09/07/23 08:59 BMI result Body Mass Index 28.5 Tobacco/Smoking Status: Tobacco use Status Tobacco use date assessed 09/07/23 09/07/23 09:06 Patient Tobacco Use Status Never used Tobacco 09/07/23 09:02 e-Cigarette/Vaping Use Never Used 09/07/23 09:02 PHQ-9: PHQ-9 Score PHQ-9: Total score 0 09/07/23 09:28 Depression Screening Interpretation: Negative Thrive Assessment: Date of Thrive Assessment Date Thrive assessed 09/07/23 09/07/23 09:06 Currently or been in a relationship where the following occur: no concerns reported Const General: healthy appearing, no acute distress, alert and awake Nutritional Appearance: well nourished Orientation/consciousness: oriented to person, oriented to place and oriented to time HENMT Ears: TM's normal bilaterally General nose exam: Normal nasal mucous membranes and turbinates present Eyes Conjunctivae: conjunctivae normal Sclerae: sclerae normal Pupils: Equal, round and reactive pupils present Neck Neck: Yes no lymphadenopathy and Yes no JVD Thyroid: Thyroid normal Carotids: no bruits Resp Effort & Inspection: normal respiratory effort and not tachypneic Auscultation: no crackles, no rales, no rhonchi and no wheezes Cardio Rate: regular rate Rhythm: regular rhythm Heart sounds: no murmurs and normal S1 and S2 GI Palpation (GI): Soft to palpation, Tenderness to palpation present (GI) in the RLQ, no hepatomegaly and no splenomegaly Auscultation: normal bowel sounds Abdomen image: 2 1. TENDERNESS TO PALPATION IN THE AREA OUTLINED Skin General skin exam: no rashes or lesions noted and dry skin Neuro General: oriented to person, oriented to place and oriented to time Cranial nerves: Yes Equal, round and reactive pupils present Speech: No Abnormal speech present Gait exam (Neuro): Normal gait present Motor exam (neuro): no tremor noted Extrem Right upper extremity: full ROM Left upper extremity: full ROM Right lower extremity: full ROM; no edema Left lower extremity: full ROM; no edema Psych Mental Status: mental status grossly normal Speech and movement: Normal speech and movement present Affect: normal affect Attitude: cooperative Thought process: Normal thought process present Assessment and Plan Assessment & Plan (1) RLQ abdominal pain: Code(s): R10.31 - Right lower quadrant pain Plan: Patient with 3 day history acute right lower quadrant abdominal pain. Will send for ultrasound appendix to rule out appendicitis. (2) Dysthymia: Code(s): F34.1 - Dysthymic disorder Plan: Reports feeling somewhat more depressed as of late. Likely related to the winter season. She is interested in increasing her SSRI dose. Advised on sad lamp use during the evenings. Orders: Orders 2 US appendix Today R10.31 - Right lower quadrant pain Medications: New 2 fluoxetine 20 mg PO DAILY 30 days 30 caps 3RF F34.1 - Dysthymic disorder Discontinued 2 fluoxetine Discontinued Reason: Doctor's Order 10 mg PO DAILY 30 days 30 caps 3RF N95.1 - Menopausal and female climacteric states Coding Level of Care Code Est Pt Level 3 (13568) Diagnoses RLQ abdominal pain R10.31 Dysthymia F34.1 Additional Codes JEFFREY-7 Assessment Billing - JEFFREY-7 Assessment Tool: JEFFREY-7 Assessment 47127 ([id number])
[2023-09-07 08:59] VITALS: BP 142/86; PULSE 64; O2SAT 99; BMI 28.5
== END 2023-09-07 09:39 | disposition home or self-care (01) ==
PROVIDERS: PCP Physician Assistant; Visit Provider Physician Assistant
DX: R10.31 Right lower quadrant pain (principal); F34.1 Dysthymic disorder
CPT/HCPCS: 99213

== ENCOUNTER 2023-09-07 09:55 | Outpatient (REF) | payer OTHER, SELFPAY ==
--- NOTE | ~2023-09-07 | US_ITS ---
EXAMINATION: Ultrasound appendix. CLINICAL INDICATIONS: Right lower quadrant pain. COMPARISON: None. TECHNIQUE: Limited ultrasound imaging to the right lower quadrant was performed. FINDINGS: Appendix is not visualized. There is incidental finding of a anechoic right ovarian cyst measuring 2.5 x 2.0 x 2.1 cm. The ovary is visualized. Normal arterial and venous flow on Doppler exam. There is no free fluid in the pelvis. US/US appendix IMPRESSION: Appendix is not visualized. Incidental finding of a right ovarian cyst.
== END 2023-09-07 09:56 | disposition home or self-care (01) ==
LOC: HO.US 09:55
PROVIDERS: PCP Physician Assistant; Visit Provider Physician Assistant
DX: R10.31 Right lower quadrant pain (principal)
CPT/HCPCS: 76705

== ENCOUNTER 2023-09-22 11:57 | Outpatient (REF) | payer OTHER, SELFPAY ==
--- NOTE | ~2023-09-22 | XR_ITS ---
EXAMINATION: XR ABDOMEN KUB CLINICAL INDICATION: Abdominal pain COMPARISON: None available. TECHNIQUE: AP view of the abdomen. FINDINGS: There is evidence scattered moderate stool and gas in the colon without distention. There is no organomegaly. No radiopaque calculi seen. No gross bony abnormality. XR/XR KUB IMPRESSION: Mild constipation.
== END 2023-09-22 11:58 | disposition home or self-care (01) ==
LOC: HO.XRAY 11:57
PROVIDERS: PCP Physician Assistant; Visit Provider Physician Assistant
DX: R10.9 Unspecified abdominal pain (principal)
CPT/HCPCS: 74018

== ENCOUNTER 2023-10-04 06:41 | Outpatient (REF) | payer OTHER, SELFPAY ==
[2023-10-04 07:07] LABS: MANUAL DIFF FLAG NO
[2023-10-04 07:44] LABS: Basophils Absolute Auto 0.1 X10*3/uL (0.0-0.2); Eosinophils Absolute Auto 0.1 X10*3/uL (0.0-0.4); Eosinophils Percent Auto 1.5 % (0-4); Hematocrit 28.8 % (37.0-47.0); Imm Gran Abs Auto 0.02 X10*3/uL (0.00-0.03); Imm Gran Pct Auto 0.4 % (0.0-0.4); Lymphocytes Absolute Auto 1.6 X10*3/uL (1.2-4.9); Lymphocytes Percent Auto 31.7 % (20-40); Mean Corpuscular HGB Conc 29.2 g/dl (31.0-35.0); Mean Corpuscular Hemoglobin 20.1 pg (27.0-33.0); Mean Corpuscular Volume 69.1 fL (80.0-98.0); Mean Platelet Volume 9.3 fL (9.4-12.3); Monocytes Absolute Auto 0.4 X10*3/uL (0.1-1.2); Monocytes Percent Auto 6.9 % (2-11); Neutrophils Percent Auto 58.5 % (45-73); Platelet Count 386 X10*3/uL (160-400); Red Blood Count 4.17 X10*6/uL (4.20-5.50); Red Cell Distribution Width 16.3 % (11.0-16.0); White Blood Count 5.2 X10*3/uL (4.8-10.8)
[2023-10-04 07:50] LABS: Estimated Average Glucose 103 mg/dL; Hemoglobin A1c % 5.2 % (<6.0)
[2023-10-04 07:56] LABS: Hemoglobin 8.4 g/dl (12.0-16.0)
[2023-10-04 08:13] LABS: Alanine Aminotransferase 12 U/L (0-31); Albumin Level 4.1 g/dL (3.5-5.0); Alkaline Phosphatase 38 U/L (39-117); Anion Gap 11 (12-20); Aspartate Amino Transferase 11 U/L (5-31); Bilirubin Total 0.4 mg/dL (0.0-1.0); Blood Urea Nitrogen 14 mg/dL (9-16); Calcium 9.2 mg/dL (8.4-10.2); Carbon Dioxide 25 mmol/L (22-29); Chloride 107 mmol/L (96-108); Cholesterol 163 mg/dL (<200); Estimated Glomerular Filt Rate > 60; Glucose Random 95 mg/dL (60-115); HDL Cholesterol 45 mg/dL (>40); LDL Cholesterol Calculated 97 mg/dL (<100); Potassium 4.1 mmol/L (3.3-5.1); Sodium 139 mmol/L (135-145); Total Protein 7.3 g/dL (6.5-8.0); Triglycerides 108 mg/dL (<150)
[2023-10-04 08:32] LABS: Insulin 5 uU/mL (2-29); Vitamin D 25-OH Total 54.5 ng/mL (>30)
[2023-10-04 08:43] LABS: Folate 10.7 ng/mL (> or = 4.0); Vitamin B12 328 pg/mL (200-900)
== END 2023-10-04 06:42 | disposition home or self-care (01) ==
LOC: HO.LAB 06:41
PROVIDERS: PCP Physician Assistant; Visit Provider Nurse Practitioner Women's Health
DX: Z00.00 Encounter for general adult medical examination without abnormal findings (principal); Z13.6 Encounter for screening for cardiovascular disorders
CPT/HCPCS: 36415; 80053; 80061; 82306; 82607; 82746; 83036; 83525; 85025

== ENCOUNTER 2023-11-02 11:30 | Outpatient (AMB) | payer OTHER, SELFPAY ==
--- NOTE | 2023-11-02 11:33 | MHC.PC.OV ---
Vital Signs 11/02/23 11:38 Height 5 ft 3 in Weight 163 lb 2 oz BMI 28.9 BP 136/86 Blood Pressure Location Lt brachial Position Sitting Pulse 81 Pulse Source Pulse Oximeter Pulse Oximetry (%) 99 Oxygen Delivery Method Room Air Intake Visit Reasons: kidney infection Rn Endocrinology Required: No Accompanied by: Self / Same As Patient Allergies bupropion [From Wellbutrin] Adverse Reaction (Mild, Verified 11/02/23 11:52) Agitated Medication List - Last Reconciled 11/02/23 by Kennedy Hoff PA-C fluoxetine 20 mg PO DAILY 30 days magnesium oxide 250 mg PO BID 30 days metformin 500 mg PO DAILY metformin 850 mg PO DAILY norethindrone-e.estradiol-iron 1 mg-20 mcg (21)/75 mg (7) ([place] Fe 08/14 (28)) 1 tab PO DAILY ondansetron HCl 8 mg PO Q12H PRN 5 days riboflavin (vitamin B2) 50 mg PO DAILY 30 days Tobacco use date assessed: 09/07/23 Dental Screening Dental Screen Date: 09/07/23 HPI kidney infection HPI Details Patient is a 48-year-old female here today for a follow-up visit. Patient's past medical history significant for history iron deficiency anemia, GERD, major depressive disorder and migraines. has followed fire alarm inspector/ hormonal specialist online. She has been started control pills and metformin. Her menses have not been as heavy as of late. Most recent labs did show low hemoglobin and RBCs. Will recheck CBC in 6 weeks to evaluate the need for supplemental iron. .. Weight: BMI today 28.9. She is still discouraged that she is not able to lose any weight. She reports she has a good diet and exercises several times a week. [facility] Medical History Meningioma Anemia Eczema JEFFREY (generalized anxiety disorder) GERD (gastroesophageal reflux disease) Surgical History History of tubal ligation H/O bilateral breast reduction surgery History of section Family History Father Esophageal cancer Diabetes Mother Ovarian cancer Kidney malignancy Maternal Grandfather Colon cancer Maternal Grandmother Lung cancer Social History Housing: House Alcohol intake: current Alcohol intake frequency: holidays/special occasions only Patient Tobacco Use Status: Never used Tobacco e-Cigarette/Vaping Use: Never Used service: No Current occupational status: employed Current occupation: Resp [employer] Cognitive needs: No Hearing needs: No Vision needs: No Questionnaire Thrive Questionnaire Date Thrive assessed: 09/07/23 JEFFREY-7 AMB Questionnaire JEFFREY-7 Date JEFFREY - 7 assessed: 09/07/23 Source: Developed by Drs. Ricardo Aguilar, Rachel Baird, Ruben Edwards and colleagues, with an educational shavonne from [employer]. Review of Systems Const Reports fatigue and Denies headache(s) Eyes Denies loss of vision ENT Denies vertigo, Denies dizziness, Denies headache(s) and Denies sore throat Card Denies chest pain, Denies leg edema and Denies lightheadedness Resp Denies cough, Denies hemoptysis and Denies wheezing GI Denies abdominal pain, Denies melena, Denies constipation, Denies diarrhea and Denies vomiting Denies urinary frequency, Denies dysuria and Denies urinary urgency Musc Denies arthralgias, Denies joint swelling, Denies numbness and Denies tingling Neuro Denies Abnormal speech present, Denies behavioral changes, Denies vertigo, Denies dizziness, Denies headache(s), Denies loss of vision, Denies memory loss, Denies numbness and Denies tingling Psych Denies anxiety, Denies behavioral changes, Denies depression, Denies memory loss and Denies panic attacks Endo Reports fatigue Ronald/Lymph Denies easy bleeding and Denies easy bruising Aller/Immun Denies wheezing Physical exam (Primary Care) Vital Signs: Last Vital Signs Pulse 81 11/02/23 11:38 BP 136/86 11/02/23 11:38 Pulse Ox 99 11/02/23 11:38 Oxygen Delivery Method Room Air 11/02/23 11:38 BMI result Body Mass Index 28.9 Tobacco/Smoking Status: Tobacco use Status Tobacco use date assessed 09/07/23 11/02/23 11:33 Patient Tobacco Use Status Never used Tobacco 11/02/23 11:33 e-Cigarette/Vaping Use Never Used 11/02/23 11:33 Thrive Assessment: Date of Thrive Assessment Date Thrive assessed 09/07/23 11/02/23 11:33 Const General: healthy appearing, no acute distress, alert and awake Nutritional Appearance: well nourished Orientation/consciousness: oriented to person, oriented to place and oriented to time HENMT Ears: TM's normal bilaterally General nose exam: Normal nasal mucous membranes and turbinates present Eyes Conjunctivae: conjunctivae normal Sclerae: sclerae normal Pupils: Equal, round and reactive pupils present Neck Neck: Yes no lymphadenopathy and Yes no JVD Thyroid: Thyroid normal Carotids: no bruits Resp Effort & Inspection: normal respiratory effort and not tachypneic Auscultation: no crackles, no rales, no rhonchi and no wheezes Cardio Rate: regular rate Rhythm: regular rhythm Heart sounds: no murmurs and normal S1 and S2 GI Palpation (GI): Soft to palpation, nontender, no hepatomegaly and no splenomegaly Auscultation: normal bowel sounds Skin General skin exam: no rashes or lesions noted and dry skin Neuro General: oriented to person, oriented to place and oriented to time Cranial nerves: Yes Equal, round and reactive pupils present Speech: No Abnormal speech present Gait exam (Neuro): Normal gait present Motor exam (neuro): no tremor noted Extrem Right upper extremity: full ROM Left upper extremity: full ROM Right lower extremity: full ROM; no edema Left lower extremity: full ROM; no edema Psych Mental Status: mental status grossly normal Speech and movement: Normal speech and movement present Affect: normal affect Attitude: cooperative Thought process: Normal thought process present Assessment and Plan Assessment & Plan (1) Anemia: Code(s): D64.9 - Anemia, unspecified Qualifiers: Anemia type: iron deficiency Iron deficiency anemia type: unspecified iron deficiency Qualified Code(s): D50.9 - Iron deficiency anemia, unspecified Plan: Noted significant anemia most recent labs. Likely secondary to menstrual bleeding. Will recheck CBC and iron studies and if low will consider iron supplementation. (2) Dysfunctional uterine bleeding: Code(s): N93.8 - Other specified abnormal uterine and vaginal bleeding Plan: Has now establish care with a fire alarm inspector hormonal specialist. Has been started on oral control and metformin. She reports her menses are not as heavy. Again will recheck CBC and iron studies Orders: Orders Complete Blood Count no Diff 6 Weeks D50.9 - Iron deficiency anemia, unspecified IRON PROFILE 6 Weeks D50.9 - Iron deficiency anemia, unspecified Coding Level of Care Code Est Pt Level 4 (39594) Diagnoses Iron deficiency anemia, unspecified iron deficiency anemia type D50.9 Anemia type: iron deficiency Iron deficiency anemia type: unspecified iron deficiency Dysfunctional uterine bleeding N93.8
[2023-11-02 11:38] VITALS: BP 136/86; PULSE 81; O2SAT 99; BMI 28.9
== END 2023-11-02 12:16 | disposition home or self-care (01) ==
PROVIDERS: PCP Physician Assistant; Visit Provider Physician Assistant
DX: D50.9 Iron deficiency anemia, unspecified (principal); N93.8 Other specified abnormal uterine and vaginal bleeding
CPT/HCPCS: 99214

== ENCOUNTER 2023-11-29 14:32 | Outpatient (AMB) | payer OTHER, SELFPAY ==
--- NOTE | 2023-11-29 14:36 | MHC.PC.OV ---
Vital Signs 11/29/23 14:37 Height 5 ft 3 in Weight 167 lb 6 oz BMI 29.6 BP 148/88 H Blood Pressure Location Lt brachial Position Sitting Pulse 78 Pulse Source Pulse Oximeter Pulse Oximetry (%) 99 Oxygen Delivery Method Room Air Intake Visit Reasons: High BP Intake Note: Patient is here to follow up on High BP. Electronics Installer Required: No Education Department Chair: Not Required per policy Accompanied by: Self / Same As Patient Allergies bupropion [From Wellbutrin] Adverse Reaction (Mild, Verified 11/29/23 14:41) Agitated Medication List - Last Reconciled 11/29/23 by Kennedy Hoff PA-C fluoxetine 20 mg PO DAILY 30 days magnesium oxide 250 mg PO BID 30 days metformin 500 mg PO DAILY metformin 850 mg PO DAILY norethindrone-e.estradiol-iron 1 mg-20 mcg (21)/75 mg (7) ([place] 08/14 (28)) 1 tab PO DAILY ondansetron HCl 8 mg PO Q12H PRN 5 days riboflavin (vitamin B2) 50 mg PO DAILY 30 days Tobacco use date assessed: 11/29/23 Dental Screening Dental Screen Date: 09/07/23 HPI High BP HPI Details Patient is a 48-year-old female here today for a problem visit. Patient's past medical history significant for history iron deficiency anemia secondary heavy menstrual bleeding, GERD, major depressive disorder and migraines. Concern-> elevated blood pressure reading since starting hormonal replacement to regulate her menstruations. She does admit to having headaches and noted elevated blood pressures at home. She does believe it is due to new hormonal control pills though has found significant benefit in her quality of life with using them. PLAN: She will follow-up with her manager sales support whom his prescribing hormonal pills and see if there is any other alternative options with lower hormonal dosage. Also will start hydrochlorothiazide 12.5 mg daily to try to control blood pressure. *Of note did have an outbreak shingles over her left upper lip and nose. Was treated with antivirals. Doing much better now [facility] Medical History Meningioma Anemia Eczema JEFFREY (generalized anxiety disorder) GERD (gastroesophageal reflux disease) Surgical History History of tubal ligation H/O bilateral breast reduction surgery History of section Family History Father Esophageal cancer Diabetes Mother Ovarian cancer Kidney malignancy Maternal Grandfather Colon cancer Maternal Grandmother Lung cancer Social History Housing: House Alcohol intake: current Alcohol intake frequency: holidays/special occasions only Patient Tobacco Use Status: Never used Tobacco e-Cigarette/Vaping Use: Never Used Second Hand Smoke Exposure: No service: No Current occupational status: employed Current occupation: Resp Therapy Cognitive needs: No Hearing needs: No Vision needs: No Questionnaire Thrive Questionnaire Date Thrive assessed: 09/07/23 JEFFREY-7 AMB Questionnaire JEFFREY-7 Date JEFFREY - 7 assessed: 09/07/23 Source: Developed by Drs. Ricardo Aguilar, Rachel Baird, Ruben Edwards and colleagues, with an educational shavonne from [employer]. Review of Systems Const Reports headache(s) Eyes Denies loss of vision ENT Denies vertigo, Denies dizziness, Reports headache(s) and Denies sore throat Card Denies chest pain, Denies leg edema and Denies lightheadedness Resp Denies cough, Denies hemoptysis and Denies wheezing GI Denies abdominal pain, Denies melena, Denies constipation, Denies diarrhea and Denies vomiting Denies urinary frequency, Denies dysuria and Denies urinary urgency Musc Denies arthralgias, Denies joint swelling, Denies numbness and Denies tingling Neuro Denies Abnormal speech present, Denies behavioral changes, Denies vertigo, Denies dizziness, Reports headache(s), Denies loss of vision, Denies memory loss, Denies numbness and Denies tingling Psych Denies anxiety, Denies behavioral changes, Denies depression, Denies memory loss and Denies panic attacks Ronald/Lymph Denies easy bleeding and Denies easy bruising Aller/Immun Denies wheezing Physical exam (Primary Care) Vital Signs: Last Vital Signs Pulse 78 11/29/23 14:37 BP 148/88 H 11/29/23 14:37 Pulse Ox 99 11/29/23 14:37 Oxygen Delivery Method Room Air 11/29/23 14:37 BMI result Body Mass Index 29.6 Tobacco/Smoking Status: Tobacco use Status Tobacco use date assessed 11/29/23 11/29/23 14:40 Patient Tobacco Use Status Never used Tobacco 11/29/23 14:40 e-Cigarette/Vaping Use Never Used 11/29/23 14:40 Thrive Assessment: Date of Thrive Assessment Date Thrive assessed 09/07/23 11/29/23 14:40 Const General: healthy appearing, no acute distress, alert and awake Nutritional Appearance: well nourished Orientation/consciousness: oriented to person, oriented to place and oriented to time HENMT Ears: TM's normal bilaterally General nose exam: Normal nasal mucous membranes and turbinates present Eyes Conjunctivae: conjunctivae normal Sclerae: sclerae normal Pupils: Equal, round and reactive pupils present Neck Neck: Yes no lymphadenopathy and Yes no JVD Thyroid: Thyroid normal Carotids: no bruits Resp Effort & Inspection: normal respiratory effort and not tachypneic Auscultation: no crackles, no rales, no rhonchi and no wheezes Cardio Rate: regular rate Rhythm: regular rhythm Heart sounds: no murmurs and normal S1 and S2 GI Palpation (GI): Soft to palpation, nontender, no hepatomegaly and no splenomegaly Auscultation: normal bowel sounds Skin General skin exam: no rashes or lesions noted and dry skin Neuro General: oriented to person, oriented to place and oriented to time Cranial nerves: Yes Equal, round and reactive pupils present Speech: No Abnormal speech present Gait exam (Neuro): Normal gait present Motor exam (neuro): no tremor noted Extrem Right upper extremity: full ROM Left upper extremity: full ROM Right lower extremity: full ROM; no edema Left lower extremity: full ROM; no edema Psych Mental Status: mental status grossly normal Speech and movement: Normal speech and movement present Affect: normal affect Attitude: cooperative Thought process: Normal thought process present Assessment and Plan Assessment & Plan (1) HTN (hypertension): Code(s): I10 - Essential (primary) hypertension Qualifiers: Hypertension type: primary hypertension Qualified Code(s): I10 - Essential (primary) hypertension Plan: Noted to have elevated blood pressure readings over the last few weeks. Likely related to hormonal control pill she is taking at this time. She does report having occasional headache. She is willing to start blood pressure medication to stabilize her blood pressure. Advised to monitor blood pressure with goal blood pressure to be below 140/90. Since starting hormonal control her quality life has been much better, better energy and more regulated menstruation. She is apprehensive on stopping hormonal control due to the benefit she has gained.. She will talk to her manager sales support specialist about lower dose hormonal replacement. Orders: Orders Basic Metabolic Panel Today I10 - Essential (primary) hypertension Medications: New hydrochlorothiazide 12.5 mg PO DAILY 30 tabs 1RF 30 days I10 - Essential (primary) hypertension Patient Instructions: Goal: Blood pressure to be below 140/90 Barrier: Adherence to medication Coding Level of Care Code Est Pt Level 4 (56379) Diagnoses Primary hypertension I10 Hypertension type: primary hypertension
[2023-11-29 14:37] VITALS: BP 148/88; PULSE 78; O2SAT 99; BMI 29.6
== END 2023-11-29 15:04 | disposition home or self-care (01) ==
PROVIDERS: PCP Physician Assistant; Visit Provider Physician Assistant
DX: I10 Essential (primary) hypertension (principal)
CPT/HCPCS: 99214

== ENCOUNTER 2023-12-03 15:12 | Outpatient (REF) | payer OTHER, SELFPAY ==
--- NOTE | ~2023-12-03 | MM_ITS ---
EXAMINATION: MM SCREENING DIGITAL BREAST TOMOSYNTHESIS, BILATERAL CLINICAL INFORMATION: Screening. Asymptomatic. Patient has a history of bilateral breast reduction. Bilateral post reduction changes are present. COMPARISON: Mammography: This study is compared with prior exams dating back to 2018. TECHNIQUE: Digital breast tomosynthesis is performed in both the craniocaudal and mediolateral oblique views along with computer-aided detection (CAD). Synthesized 2D images are generated from the tomosynthesis. FINDINGS: There are scattered areas of fibroglandular density (ACR BI-RADS breast composition Category b). There are no significant masses, abnormal calcifications, or other abnormalities. MM/MM tomosynthesis screening BI IMPRESSION: No mammographic evidence of malignancy. ASSESSMENT: BI-RADS BI-RADS 1 - Negative RECOMMENDATION: Routine annual mammography screening. 1 year F/U This examination should not preclude the clinical evaluation of a suspicious palpable abnormality. This patient's information was entered into a reminder system with a target due date for their next mammogram.
== END 2023-12-03 15:13 | disposition home or self-care (01) ==
LOC: HO.MAMMO 15:12
PROVIDERS: PCP Physician Assistant; Visit Provider Physician Assistant
DX: Z12.31 Encounter for screening mammogram for malignant neoplasm of breast (principal)
CPT/HCPCS: 77063; 77067

== ENCOUNTER → 2023-12-03 16:30 | Outpatient (BNV) | payer OTHER, SELFPAY | PROVIDERS: PCP Physician Assistant; Visit Provider Radiology Diagnostic Radiology | DX: Z12.31 Encounter for screening mammogram for malignant neoplasm of breast (principal) | CPT/HCPCS: 77063; 77067 ==

== ENCOUNTER 2024-11-08 14:20 | Outpatient (AMB) | payer OTHER, SELFPAY ==
[2024-11-08 14:29] VITALS: BP 128/86; PULSE 90; TEMP 36.3; O2SAT 98; BMI 25.8
--- NOTE | 2024-11-08 14:29 | A.OFFPC_ITS ---
Vital Signs 11/08/24 14:29 Height 5 ft 4 in Weight 150 lb 2 oz BMI 25.8 BP 128/86 Blood Pressure Location Lt brachial Position Sitting Pulse 90 Pulse Source Pulse Oximeter Temp 97.3 F Temp Source Temporal Artery Scan Pulse Oximetry (%) 98 Oxygen Delivery Method Room Air Intake Visit Reasons: annual exam Intake Note: Patient is here today for a physical. 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 Accompanied by: Self / Same As Patient Allergies bupropion [From Wellbutrin] Adverse Reaction (Mild, Verified 11/08/24 14:59) Agitated Medication List - Last Reconciled 11/08/24 by Kennedy Hoff PA-C norethindrone (contraceptive) 0.35 mg PO DAILY omeprazole 20 mg PO DAILY 90 days Tobacco use date assessed: 11/08/24 Dental Screening Dental Screen Date: 11/08/24 Did you have a dental visit in the last 12 months?: Yes Did you have a dental problem in the last 6 months where you did not have access to dental care?: No Was dental information given to patient?: Patient has dentist HPI annual exam HPI Details Patient is a 49-year-old female here today for a a routine annual physical. Patient's past medical history significant for history iron deficiency anemia, GERD, major depressive disorder and migraines. Concerns--> has noted that her eczema has gotten worse, she has noted skin lesions around both eyes that has become very itchy and dry. She is interested in treatment for her eczema. .. .. 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 Of note patient's father did have esophageal cancer. She continues on PPI therapy .. Anemia: Most recent labs showing fairly significant anemia likely secondary to uterine bleeding. Has been seeing an online seating and mobility technologist and has started progesterone therapy which has drastically reduced her menstrual bleeding. Mammogram: Done in November of 2022 BI-RADS 1- CLOTH COLORER: needs to reschedule- will try to reschedule with [place] seating and mobility technologist Colonoscopy: Done in 2021 normal repeat 10 years [facility] Medical History (Updated 11/08/24 @ 15:10 by Kennedy Hoff PA-C) Eczema Meningioma Anemia JEFFREY (generalized anxiety disorder) GERD (gastroesophageal reflux disease) Surgical History History of tubal ligation H/O bilateral breast reduction surgery History of section Family History Father Esophageal cancer Diabetes Mother Ovarian cancer Kidney malignancy Maternal Grandfather Colon cancer Maternal Grandmother Lung cancer Social History Housing: House Alcohol intake: current Alcohol intake frequency: holidays/special occasions only Patient Tobacco Use Status: Never used Tobacco e-Cigarette/Vaping Use: Never Used Second Hand Smoke Exposure: No service: No Current occupational status: employed Current occupation: Resp Therapy Cognitive needs: No Hearing needs: No Vision needs: No Questionnaire PHQ-9 Over the last 2 weeks, how often have you been bothered by any of the following problems? 1. Little interest or pleasure in doing things: not at all 2. Feeling down, depressed, or hopeless: not at all 3. Trouble falling or staying asleep, or sleeping too much: not at all 4. Feeling tired or having little energy: not at all 5. Poor appetite or overeating: not at all 6. Feeling bad about yourself - or that you are a failure or have let yourself or your family down: not at all 7. Trouble concentrating on things, such as reading the newspaper or watching television: not at all 8. Moving or speaking so slowly that other people could have noticed. Or the opposite - being so fidgety or restless that you have been moving around a lot more than usual: not at all 9. Thoughts that you would be better off or of hurting yourself in some way: not at all Total score: 0 Depression Screening Interpretation: Negative Depression Screening Done: Yes 42047 - PHQ-9 Billing: Yes Source: Developed by Drs. Ricardo Aguilar, Rachel Baird, Ruben Edwards and colleagues, with an educational shavonne from [employer]. Thrive Questionnaire Date Thrive assessed: 11/08/24 I am a: Patient What is your living situation today?: I have a steady place to live Within the past 12 months, did the food you bought not last and you didn't have the money to get more?: Never true Within the past 12 months, did you worry whether your food would run out before you got money to buy more?: Never true Do you have trouble paying for medicines?: No Do you have trouble getting transportation to medical appointments?: No Do you have trouble paying your heating and electricity bill?: No Do you have trouble taking care of your child, family member or friend?: No Do you have trouble with day-to-day activities such as bathing, preparing meals, shopping, managing finances, etc.?: No Are you currently unemployed and looking for a job?: No Are you interested in more education?: No Please select the resources that you would like help with: None Currently or been in a relationship where the following occur: No concerns reported THRIVE Score: 0 AUDIT C Alcohol Use Questionnaire (AUDIT-C) 1. How often do you have a drink containing alcohol?: 2-4 times a month 2. How many drinks containing alcohol do you have on a typical day when you are drinking?: 1 or 2 3. How often do you have six or more drinks on one occasion?: Never Total Score: 2 JEFFREY-7 AMB Questionnaire JEFFREY-7 Date JEFFREY - 7 assessed: 11/08/24 Feeling nervous, anxious, or on edge: 0 = Not at all Not being able to stop or control worryin = Not at all Worrying too much about different things: 0 = Not at all Trouble relaxin = Not at all Being so restless that it is hard to sit still: 0 = Not at all Becoming easily annoyed or irritable: 0 = Not at all Feeling afraid as if something awful might happen: 0 = Not at all Total JEFFREY-7 score (0-4 normal; 5-9 mild; 10-14 moderate; 15-21 severe): 0 Source: Developed by Drs. Ricardo Aguilar, Rachel Baird, Ruben Edwards and colleagues, with an educational shavonne from [employer]. JEFFREY-7 Assessment Billing JEFFREY-7 Assessment Tool: JEFFREY-7 Assessment 13132 Review of Systems Const Denies body aches, Denies chills, Denies excessive sweating, Denies fatigue, Denies fever(s) and Denies headache(s) Eyes Denies blurry vision ENT Denies dysphagia, Denies vertigo, Denies dizziness, Denies headache(s), Denies hearing loss and Denies tinnitus Card Denies chest pain, Denies chest pain with activity, Denies syncope, Denies irregular heart rhythm and Denies dyspnea Resp Denies chest congestion, Denies cough, Denies hemoptysis, Denies dyspnea and Denies wheezing GI Denies abdominal pain, Denies melena, Denies hematochezia, Denies coffee ground emesis, Denies dysphagia, Denies diarrhea, Denies nausea and Denies vomiting Denies urinary frequency, Denies dysuria, Denies urinary hesitancy and Denies urinary urgency Musc Denies arthralgias, Denies limited range of motion, Denies muscle cramps and Denies muscle weakness Skin/Breast Denies rash and Denies skin ulcer Neuro Denies Abnormal speech present, Denies confusion, Denies vertigo, Denies dizziness, Denies syncope, Denies headache(s), Denies memory loss and Denies seizure-like activity Psych Denies anxiety, Denies confusion, Denies depression, Denies memory loss, Denies panic attacks and Denies paranoia Endo Denies excessive sweating, Denies fatigue, Denies flushing, Denies polydipsia and Denies polyuria Aller/Immun Denies wheezing Physical exam (Primary Care) Vital Signs: Last Vital Signs Temp 97.3 F 11/08/24 14:29 Pulse 90 11/08/24 14:29 BP 128/86 11/08/24 14:29 Pulse Ox 98 11/08/24 14:29 Oxygen Delivery Method Room Air 11/08/24 14:29 BMI result Body Mass Index 25.8 Tobacco/Smoking Status: Tobacco use Status Tobacco use date assessed 11/08/24 11/08/24 14:33 Patient Tobacco Use Status Never used Tobacco 11/08/24 14:33 e-Cigarette/Vaping Use Never Used 11/08/24 14:33 PHQ-9: PHQ-9 Score PHQ-9: Total score 0 11/08/24 15:00 Depression Screening Interpretation: Negative Thrive Assessment: Date of Thrive Assessment Date Thrive assessed 11/08/24 11/08/24 14:33 Currently or been in a relationship where the following occur: No concerns reported Const General: cooperative, comfortable, no acute distress, alert and awake; No confusion Orientation/consciousness: oriented to person, oriented to place, patient oriented x3 and No confusion HENMT Head: Yes normocephalic Ears: external ears normal and TM's normal bilaterally Face and sinus: No sinus tenderness Mouth: Normal oral and palatal mucosa present and tongue normal Teeth and gingiva: dentition normal and gingiva normal Throat: Yes posterior oropharynx normal, Yes tonsils normal and Yes uvula midline Eyes Conjunctivae: conjunctivae normal Sclerae: sclerae normal Pupils: Equal, round and reactive pupils present EOM: EOMs intact bilaterally Direct Ophthalmoscopy: No no photophobia Neck Neck: Yes no lymphadenopathy, No tender and Yes no JVD Thyroid: Thyroid normal Carotids: no bruits Chest Chest palpation & inspection: no tenderness Resp Effort & Inspection: normal respiratory effort, no audible wheezes, not labored and no stridor Auscultation: no crackles, no rales, no rhonchi and no wheezes Cardio Jugular venous distension: no JVD Rate: regular rate, not bradycardic and not tachycardic Rhythm: regular rhythm Bruits: no carotid bruits Peripheral pulses: Peripheral pulses 2+ throughout GI Inspection: Yes normal to inspection, No abdominal wall ecchymosis and No visible herniation Palpation (GI): Soft to palpation, nontender, no guarding, not rigid and No hepatosplenomegaly present Auscultation: normoactive bowel sounds General: Yes no CVA tenderness Back/Spine/Pelvis Back: no CVA tenderness and No back tenderness Cervical Spine: cervical ROM normal Thoracic/Lumbar Spine: thoracic and lumbar spine normal to inspection, straight leg raise negative bilaterally, No thoraco-lumbar ROM limited and No lumbar spinal tenderness Skin Lesions: no lesions Rashes: no rashes Wounds: no wounds Neuro General: oriented to person, oriented to place, patient oriented x3, CN's II-XI intact bilaterally and No confusion Cranial nerves: Yes Equal, round and reactive pupils present and Yes Normal accommodation reflex present Cognition (Neuro): normal cognition Speech: No Abnormal speech present Gait exam (Neuro): Normal gait present Motor exam (neuro): 5/5 motor strength present throughout Extrem Right upper extremity: full ROM; no cyanosis Left upper extremity: full ROM; no cyanosis Right lower extremity: no edema Left lower extremity: no edema Psych Appearance: grossly normal Mental Status: mental status grossly normal Affect: normal affect Attitude: cooperative Thought process: Normal thought process present Coding Level of Care Code Est Pt Prev Care 40-64y(97497) Diagnoses Annual physical exam Z00.00 Cervical cancer screening Z12.4 Primary hypertension I10 Hypertension type: primary hypertension Dysfunctional uterine bleeding N93.8 Intrinsic eczema L20.84 Eczema type: intrinsic Additional Codes JEFFREY-7 Assessment Billing - JEFFREY-7 Assessment Tool: JEFFREY-7 Assessment 88239 ([id number]) PHQ-9 - 01241 - PHQ-9 Billing: Yes ([id number]) Assessment & Plan Assessment & Plan (1) Annual physical exam: Code(s): Z00.00 - Encounter for general adult medical examination without abnormal findings Category: Medical Plan: As per HPI (2) Cervical cancer screening: Code(s): Z12.4 - Encounter for screening for malignant neoplasm of cervix Category: Medical Plan: Patient in need of Pap screening, has lost her seating and mobility technologist follow-up. (3) HTN (hypertension): Code(s): I10 - Essential (primary) hypertension Category: Medical Qualifiers: Hypertension type: primary hypertension Qualified Code(s): I10 - Essential (primary) hypertension Plan: Patient's blood pressure acceptable today in office. She has been off hydrochlorothiazide, it was suspected that her estrogen component of her contraceptive medication was causing high blood pressures. Goal blood pressure to remain below 140/90 (4) Dysfunctional uterine bleeding: Code(s): N93.8 - Other specified abnormal uterine and vaginal bleeding Category: Medical Plan: Has resolved since starting progesterone therapy. Will recheck her CBC to evaluate for improved blood counts . (5) Eczema: Code(s): L30.9 - Dermatitis, unspecified Category: Medical Qualifiers: Eczema type: intrinsic Qualified Code(s): L20.84 - Intrinsic (allergic) eczema Plan: Has noted to have eczema over her hands and periorbital. Will supply patient with low-dose topical steroid lotion to use around the eyes. Advised on antihistamine therapy such as Claritin or Zyrtec on a daily basis. Orders: Orders IRON PROFILE 11/08/24 D50.9 - Iron deficiency anemia, unspecified Microalbumin, Random (w Creat) 11/08/24 I10 - Essential (primary) hypertension Comprehensive [place]. Panel Fast 11/08/24 I10 - Essential (primary) hypertension Complete Blood Count no Diff 11/08/24 D50.9 - Iron deficiency anemia, unspecified Medications: New desonide 0.05% 1 appl topical DAILY 4 weeks 118 mL 0RF L20.84 - Intrinsic (allergic) eczema Refilled omeprazole 20 mg PO DAILY 90 days 90 caps 1RF K21.9 - Gastro-esophageal reflux disease without esophagitis
--- OUTSIDE RECORDS SUMMARY | 2024-11-08 17:07 | XMS_ITS | Data Portability ---
Author Organization [facility] in Office Address [address] [place] [address] Assessment Encounter Date Assessment Date Assessment LastModified by Organization Details LastModified Time 05/29/2024 05/29/2024 I spent 15 minutes of vbhy-uk-afty counselling and care coordination time with the patient. This includes reviewing medical records (medical, surgical, family and social history); updating medication and allergy information in the electronic health record; and ordering labs, medications, and education materials to continue patient care. Not available 05/29/2024 09:00:10 07/13/2024 07/13/2024 I spent 15 minutes of obqz-ru-leaj counselling and care coordination time with the patient. This includes reviewing medical records (medical, surgical, family and social history); updating medication and allergy information in the electronic health record; and ordering labs, medications, and education materials to continue patient care. Not available 07/13/2024 09:23:29 08/17/2024 08/17/2024 I spent 15 minutes of qxaq-au-oxeq counselling and care coordination time with the patient. This includes reviewing medical records (medical, surgical, family and social history); updating medication and allergy information in the electronic health record; and ordering labs, medications, and education materials to continue patient care. Not available 08/17/2024 08:56:24 09/13/2024 09/13/2024 I spent 10 minutes of ccoi-kv-vquw counselling and care coordination time with the patient. This includes reviewing medical records (medical, surgical, family and social history); updating medication and allergy information in the electronic health record; and ordering labs, medications, and education materials to continue patient care. Not available 09/13/2024 07:51:18 10/04/2024 10/04/2024 I spent 10 minutes of wbiq-nt-myth counselling and care coordination time with the patient. This includes reviewing medical records (medical, surgical, family and social history); updating medication and allergy information in the electronic health record; and ordering labs, medications, and education materials to continue patient care. Not available 10/04/2024 07:50:11 Plan of Treatment Reminders Order Date Submit Date Provider Last Modified By Organization Details Last Modified Time Details Appointments [id number] 2024 04:30A M Zully Post, TEENAGE BABYSITTER Not available Not available Not available Lab None recorded. Referral None recorded. Procedures None recorded. Surgeries None recorded. Imaging None recorded. Medication Orders Bundle D: 1.5 mL/week - [facility] 2024 025 [facility] (Clinic Pay Unmonitored Fax), [address] [place] [address], [id number], 10/04/2024 07:53:03 metronida zole 500 mg tablet 2024 025 [facility], [address] [place] [address], [id number], 10/04/2024 07:52:46 Bundle D: 1.5 mL/week - [facility] 2024 025 [facility] (Clinic Pay Unmonitored Fax), [address] [place] [address], [id number], 09/13/2024 08:00:56 Bundle D: 1.5 mL/week - [facility] 2024 025 [facility] (Clinic Pay Unmonitored Fax), [address], [id number], 08/17/2024 09:00:56 Bundle D: 1.5 mL/week - [facility] 2023 024 [facility] (Clinic Pay Unmonitored Fax), [address] [place] [address], [place], [id number], 07/13/2024 09:30:50 minoxidil 2.5 mg tablet 2023 [facility], [address] [place] [address], [id number], 05/29/2024 09:01:37 Bundle C: 1.0 mL/week - [facility] 2023 [facility], [address] [place] [address], [id number], 08/17/2024 09:12:14 Patient TargetsNo targets recorded. Patient Instructions Encounter Date Encounter Id Patient Instructions Last Modified By Organization Details Last Modified Time 05/29/2024 [id number] Any requested follow-up visits are listed below in the Plan of Care section. Go directly to the [facility] salvage winder and inspector at [email or web address] to book a time. Not available 05/26/2024 10:30:45 It was a pleasur e to meet with you today! We discussed your health concerns related to your weight and hair thinning. Your Care Plan Together, we decided that you would: - Continue with your current dose of 1 ml of Semaglutide. You will administer this dose once a week, on Wednesdays. We will reassess this dosage at our next appointment. - Start taking Minoxidil daily to help with your hair thinning. Please note that it may take 3 to 6 months to see noticeable improvements as hair growth cycles vary. This medication will be sent to your regular pharmacy, [facility]. THINNING HAIR Thinning hair is very common after menopause due to the loss of estrogen as well as aging of hair follicles. Hair regrowth after starting estrogen therapy is slow, and may not be noticeable for 3-6 months. Cfjs-zjh-ifquzjg minoxidil (Rogaine) products are also effective, but regrown hair only lasts while you keep using the product. ? SULFATE-FREE SHAMPOO Be sure to use a gentle, sulfate-free shampoo. Isabel Suresh has a nice line of gentle shampoos and conditioners like these with Black Soap and Charcoal - https://a.co/d/303 ZzU2 - https://a.co/d/90T pC9G ? Monat has a pricey but high quality line of products specifically for thinning hair, which have some phytoestrogen components. - https://a.co/d/bxC gbnr ? TEXTURE AND STYLING The texture of our hair can also change during menopause, where straight fine hair may become coarse and wavy, or formerly tight curls can lose their definition and tend towards frizz and breakage. Curly girl forums can be very helpful for learning how to manage your new and different hair texture(s): ? https://[employer].Quantum Voyage/textu re-typing https://www.[employer]/groups/2794 200097225077 - I will send a refill for your Semaglutide today so that it is ready for you before your [place] trip in June. This will ensure you do not run out of your medication while you are away. - Schedule a follow-up appointment for Wednesday, July 10 at 9 am. We will discuss your progress and make any necessary adjustments to your treatment plan. - If you have any concerns or need anything in the meantime, please feel free to message me. Please remember that the goal of your treatment with Semaglutide is to help manage your weight. It's great to hear that you're not experiencing any side effects and that you're noticing a decrease in your food cravings. Regarding the Minoxidil, it's used to stimulate hair growth and could help with the thinning hair you've noticed. As mentioned, it may take a few months to see significant improvements, but it's a step towards addressing this concern. Enjoy your upcoming vacation! Remember to continue with your medication regimen even while you're away. If you have any questions or concerns, don't hesitate to reach out. Thank you for trusting us with your care! Not available 05/29/2024 09:01:35 07/13/2024 [id number] Any requested follow-up visits are listed below in the Plan of Care section. Go directly to the [employer] salvage winder and inspector at [email or web address] to book a time. Not available 07/12/2024 11:24:25 It was a pleasur e to meet with you today! We discussed your health concerns related to your recent pneumonia and your ongoing weight management. Your Care Plan Together, we decided that you would: - Continue taking semaglutide at the current dose of 1.5 milligrams, which is 150 units on the syringe. This medication is used to help manage your weight. - Ensure you are consuming 100 grams of protein a day and eating three meals a day. Try to spread out your protein intake throughout the day. - Continue with your current exercise routine. - We have scheduled a follow-up appointment for August 17 at 8:45 am to monitor your progress and adjust treatment as needed. Please remember to take your other medications as prescribed, including your progesterone-only control pill, minoxidil, Prozac, and a probiotic. It's important to remember that weight management can be a challenging process and it's normal to experience some frustration. However, consistency with your diet, exercise, and medication regimen is haines to seeing progress. If you have any questions or concerns, or if your symptoms worsen, please don't hesitate to reach out. Please carefully review the care plan we have decided upon, specific information regarding your medication, and important details about your treatment detailed below. Thank you for trusting us with your care! Not available 07/13/2024 09:21:59 08/17/2024 [id number] Any requested follow-up visits are listed below in the Plan of Care section. Go directly to the [employer] salvage winder and inspector at [email or web address] to book a time. Not available 08/16/2024 08:49:59 It was a pleasur e to meet with you today! We discussed your health concerns and your ongoing treatment. Your Care Plan Together, we decided that you would: - Continue with your current dose of semaglutide. Remember to monitor for any side effects such as nausea, constipation, or diarrhea. If you experience any of these, please let us know. - Continue with your current medications. - Consider keeping a log of your blood pressure once a week. This will help us monitor your condition and adjust your treatment as necessary. - Consider the possibility of using an IUD. We can discuss this further in our next appointment if you're interested. - Schedule your next appointment for September 13 at 7:45 am. We will continue to monitor your progress and adjust your treatment plan as necessary. Please remember that it can take up to 6 months to see any real difference in your condition. It's important to be patient and consistent with your treatment. If you have any questions or concerns, or if your symptoms worsen, please don't hesitate to reach out to us. We're here to support you every step of the way. Thank you for trusting us with your care! Not available 08/17/2024 08:56:49 09/13/2024 [id number] Any requested follow-up visits are listed below in the Plan of Care section. Go directly to the [facility] [employer] winder and inspector at [email or web address] to book a time. Not available 09/12/2024 16:54:03 It was a pleasur e to meet with you today! We discussed your health concerns related to your current condition and medications. Your Care Plan Together, we decided that you would: - Continue taking Stosa as you have been doing. I will reorder this medication for you as you must be nearing the end of your current supply. - Start a new medication for your discharge issue. This medication should be taken twice a day for 7 days. Please remember to take it as instructed. - Consider adding a good probiotic to your regimen. While it may not completely alleviate BV, especially if you're prone to it, it could potentially help. Doho-ujh-rifjjdp options like Culturelle or Align are recommended, but store brands could also be an option if you prefer. - Schedule a follow-up appointment for a month from now. We have set the date for October 04 at 7:45 am. Please remember to take your medications as prescribed and to monitor your symptoms. If you notice any changes or if your symptoms worsen, please contact us immediately. Your current medications include semaglutide, cefpodoxime, minoxidil, norethindrone, valacyclovir, and Prozac. Please continue taking these as prescribed. Thank you for trusting us with your care! Not available 09/13/2024 07:50:06 10/04/2024 [id number] Any requested follow-up visits are listed below in the Plan of Care section. Go directly to the [facility] [employer] winder and inspector at [email or web address] to book a time. Not available 10/02/2024 11:22:16 It was a pleasur e to meet with you today! We discussed your health concerns related to your weight and the continuation of your current medication regimen. Your Care Plan Together, we decided that you would: - Continue using semaglutide at the current dosage of 1.5, administered weekly. You've reported no side effects, which is excellent. Please continue to monitor for any changes and report them promptly. - Schedule a mammogram as part of your routine health screening. The date and time will be determined based on your availability. - Continue to focus on your weight management. Remember, the goal is not just to lose weight, but also to build strength and maintain overall health. - We have scheduled a follow-up appointment for November 15 at 7:30 am to monitor your progress and adjust treatment as needed. Please carefully review the care plan we decided upon, specific information regarding your medication, and important details about your treatment detailed below. Semaglutide is a medication used to control blood sugar levels in people with type 2 diabetes. It can also help with weight management. It's important to administer this medication as directed, and to monitor for any potential side effects. If you experience any unusual symptoms or side effects, please contact your healthcare provider immediately. Remember, maintaining a healthy lifestyle, including a balanced diet and regular exercise, is crucial in managing your weight and overall health. Thank you for trusting us with your care! Not available 10/04/2024 07:49:08 Reason for Referral None Reported. Problems Name Problem SNOMED Code Status Onset Date Resolution Date Notes Provider Name and Address Organization Details Recorded Time Menopausal symptom 69533896 [place] Lynda Herzog [place] [address] [place], [address], [facility] 4 12:25:00 Uterine leiomyoma 86306431 Active Lynda Herzog [place] [address] [place], [address], [facility] 4 16:00:14 Weight gain 2710659 Active Lynda Herzog NP [address] [place], [address], [facility] 4 16:00:14 Health education given 234331361 Active 024 Zully Herzog [place] [address] [place], [address], [facility] 4 15:49:17 Anemia 502624890 Active 024 Zully Herzog [address] [place], [address], [facility] 4 15:53:33 Obesity 140755367 Active 024 Zully Post, TEENAGE BABYSITTER [address] [place], [address], [facility] 4 08:25:04 Overweight 531828645 Active 024 Zully Post, TEENAGE BABYSITTER [address] [place], [address], [facility] 4 08:59:40 Abnormal weight gain 039947641 Active 024 Zully Post, TEENAGE BABYSITTER [address] [place], [address], [facility] 4 09:00:24 Loss of hair 514032347 Active 024 Zully Post, TEENAGE BABYSITTER [address] [place], [address], [facility] 4 09:00:18 Bacterial vaginosis 454448890 Active 025 Zully Post, TEENAGE BABYSITTER [address] [place], [address], [facility] 5 07:46:34 Problem Notes None recorded. Procedures Surgical History Date Name Laterality Status Provider Name and Address Organization Details Recorded Time 3 Date of Last Pap Smear completed Zully Rosenda, TEENAGE BABYSITTER [address] [place], [address], [facility] 07/28/2023 12:28:16 3 Date of Last Mammogram completed Zully Herzog, TEENAGE BABYSITTER [address] [place], [address], [facility] 07/28/2023 12:27:57 Imaging Results None recorded. Procedure Notes None recorded. Medical Equipment None Reported. Allergies No known drug allergies Medications Name Sig Start Date Stop Date Status Note LastModified by Organization Details LastModified Time Bundle C: 1.0 mL/week - [facility] Inject 100 units (1.0mg) SQ once weekly. 08/17 completed Not Available Not Available Not Available Bundle D: 1.5 mL/week - [facility] Inject 150 units (1.5mg) subcutane ously once weekly. 2024 active Not Available Not Available Not Avai lable Bundle D: 1.5 mL/week - [facility] Inject 150 units (1.5mg) subcutane ously once weekly. 2024 active Not Available Not Available Not Avai lable Bundle B: 0.5 mL/week - [facility] Inject 50 units (0.5mg) SQ once weekly. 05/29 completed Not Available Not Available Not Available Bundle C: 1.0 mL/week - [facility] Inject 100 units (1.0mg) SQ once weekly. 2023 active Not Available Not Available Not Avai lable Bundle A: 0.25 mL/week - [facility] Inject 0.25ml (0.25mg) SQ once weekly. 03/22 completed Not Available Not Available Not Available Bundle D: 1.5 mL/week - [facility] Inject 150 units (1.5mg) subcutane ously once weekly. 2024 active Not Available Not Available Not Avai lable Bundle D: 1.5 mL/week - [facility] Inject 150 units (1.5mg) subcutane ously once weekly. 2023 active Not Available Not Available Not Avai lable Bundle B: 0.5 mL/week - [facility] Inject 50 units (0.5mg) SQ once weekly. 2023 active Not Available Not Available Not Avai lable metformin 500 mg tablet take 1 tablet daily 02/09 completed Not Available Not Available Not Available cefpodoxime 200 mg tablet TAKE 1 TABLET BY MOUTH EVERY 12 HOURS FOR 7 DAYS 10/04 completed Not Available Not Available Not Available valacyclovi r 1 gram tablet TAKE 1 TABLET BY MOUTH THREE TIMES A DAY FOR 7 DAYS active Not Available Not Available No t Available metformin 850 mg tablet Take 1 tablet twice a day by oral route. 02/09 completed Not Available Not Available Not Available metronidazo le 500 mg tablet Take 1 tablet twice a day by oral route for 7 days. 10/04 completed Not Available Not Available Not Available minoxidil 2.5 mg tablet TAKE ONE (1) TABLET BY MOUTH EVERY DAY active Not Available Not Available No t Available norethindro ne (contracept adryan) 0.35 mg tablet TAKE 1 TABLET EVERY DAY BY MOUTH DIRECTED 2024 active Not Available Not Available Not Avai lable 08/14 (28) 1 mg-20 mcg (21)/75 mg (7) tablet Take 1 tablet every day by oral route as directed. 02/09 completed Not Available Not Available Not Available Vitals Date Recorded Body height Body mass index (BMI) Body weight Provider Name and Address Organization Details Last Updated DateTime 08/17/2024 160.02 cm 27.6 kg/m2 37905.41 g Zully Post, TEENAGE BABYSITTER [address] [place], [place], , [facility] 08/16/2024 08:50:10 Date Recorded Body height Body mass index (BMI) Body weight Provider Name and Address Organization Details Last Updated DateTime 09/13/2024 160.02 cm 26.6 kg/m2 21165.86 g Zully Post, TEENAGE BABYSITTER [address] [place], [place], , [facility] 09/13/2024 07:44:31 Date Recorded Body height Body mass index (BMI) Body weight Provider Name and Address Organization Details Last Updated DateTime 10/04/2024 160.02 cm 26 kg/m2 04647.08 g Zully Herzog, TEENAGE BABYSITTER [address] [place], [place], , [facility] 10/04/2024 07:44:30 Date Recorded Body height Body mass index (BMI) Body weight Provider Name and Address Organization Details Last Updated DateTime 05/29/2024 160.02 cm 27.4 kg/m2 52885.46 g Zully Post, TEENAGE BABYSITTER [address] [place], [place], , [facility] 05/29/2024 08:52:46 Date Recorded Body height Body mass index (BMI) Body weight Provider Name and Address Organization Details Last Updated DateTime 07/13/2024 160.02 cm 27.6 kg/m2 32557.41 g Zully Herzog, TEENAGE BABYSITTER [address] [place], [address], [facility] 07/13/2024 09:22:59 Social History Question Answer Notes LastModified by Organizat ion Details LastModified Time Tobacco Smoking Status Never Smoker Zully Herzog, TEENAGE BABYSITTER [address] [place], [address], [facility] 10/04/2024 07:51:02 What Is Your Level Of Alcohol Consumption? Occasional Information not available 10/04/2024 Are You Currently Employed? Yes Information not available 10/04/2024 What Is Your Relationship Status? Information not available 10/04/2024 Sex: Female Functional Status None recorded. Mental Status None recorded. Family History Relationship Description Onset Age of this Age Resolved Age Notes LastModified by Organization Details LastModified Time Father No current problems or disability Not available 10/04 07:50:51 Mother No current problems or disability Not available 10/04 07:50:51 Medical History Condition Response Anxiety Disorder Y Other Hypertension Y Depression/ depression Gynecological History Statement/Question Response Date of Last Pap Smear 04/28/2023 Current Control Method Tubal Ligat ion Date of Last Mammogram 12/02/2022 Date of LMP 09/24/23 Approximate Obstetrics History GPAL:G 3 P 3 0 0 0 Type Value Full Term 3 Total 3 Past Encounters Encounter ID Performer Location Encounter Start Date Encounter Closed Date Diagnosis/Indication Diagnosis SNOMED-CT Code Diagnosis ICD10 Code Diagnosis Note [id number] Camille Mcfadden MD Main Office [address] [place] [address] 07/28/2023 14:31:50 07/29/2023 06:41:59 Abnormal perimenopausal bleeding 612140064 N95.8 - Patient's heavy and prolonged menstrual bleeding, along with her perimenopa usal status, is indicative of menorrhagi a.- Prescribed a low-dose control pill to be taken daily to help regulate menstrual cycle and reduce the severity of bleeding.- Encouraged the patient to start the pill towards the end of her next menstrual cycle.- ACHES reviewed- Scheduled a follow-up appointmen t in two months to assess the effectiven ess of the treatment. Uterine leiomyoma 304623 05 D25.9 - Patient's ultrasound revealed the presence of uterine fibroids, which could be contributi ng to her heavy menstrual bleeding.- No immediate interventi on is planned for the fibroids as they are not causing significan t discomfort or complicati ons.- Will continue monitoring the fibroids and consider interventi on if they increase in size or cause worsening symptoms. Weight gain 0595206 R63. 5 - Patient's struggle with weight gain is likely multifacto rial, potentiall y related to her perimenopa usal status and lifestyle factors.- Discussed the potential for minimal weight gain with the use of control pills.- Suggested considerin g appetite suppressan ts or herbal medication like berberine to aid in weight loss.- Encouraged the patient to maintain a healthy diet and regular exercise.- Scheduled a follow-up appointmen t to monitor progress and adjust the plan as necessary. [id number] Camille Mcfadden MD Main Office [id number] [place] [address] 10/01/2023 14:32:01 10/04/2023 06:07:28 Menopausal symptom 93799885 N95.1 - Patient is taking Junel continuous ly to manage menopausal symptoms and bleeding.- Bleeding has improved with the current treatment plan.- Patient will continue the current regimen and monitor her symptoms. Uterine leiomyoma 355909 05 D25.9 - Managed with continuous use of Nora to control bleeding.- Patient reports improvemen t in bleeding.- Continue current treatment and monitor symptoms. Weight gain 7389458 R63. 5 - Discussed potential use of metformin for weight loss and insulin resistance .- Prescribed metformin with a gradual dose increase plan provided in discharge instructio ns.- Scheduled follow-up appointmen t in one month to assess progress and discuss any concerns.- will get baseline labs- Patient will continue her current exercise and diet regimen. - Anemia 984728315 D64.9 - Patient's hemoglobin levels have improved but are still trending down.- Patient is taking a multivitam in and has stopped bleeding due to continuous use of Junel- Ordered lab work to reassess hemoglobin levels and will communicat e any significan t findings before the next appointmen t. Adult [facility] th examination [id number] Z00.00 - Ordered lab work, including insulin, B12, and hemoglobin levels, to monitor patient's overall health.- Patient will have labs done at [facility] and results will be uploaded to the system.- Scheduled follow-up appointmen t in one month to review lab results and discuss any concerns. Health edu cation given [id number] N95.9 [id number] Camille Mcfadden MD Main Office [address] [place] [address] 12/23/2023 07:03:26 12/23/2023 12:02:24 Weight gain [id number] R63.5 - All lab work was normal- continues on the Metformin which is controllin g her urge for sugar and binge eating- Menopausal symptom 13870 002 N95.1 - Patient is taking Junel continuous ly to manage menopausal symptoms and bleeding.- Bleeding has improved with the current treatment plan.- she has developed HTN, we will switch OCP for POP Uterine leiomyoma [id number] D25.9 - Managed with continuous use of Junel to control bleeding.- Patient reports improvemen t in bleeding.- has bicornate uterus- since she has new Dx of HTN we will switch OCP to a POP- bleeding precaution s discussed- Continue current treatment and monitor symptoms. [id number] Camille Mcfadden MD Main Office [address] [place] [address] 02/10/2024 07:03:16 02/10/2024 14:33:33 Menopausal symptom [id number] N95.1 - Patient is takinga POP continuous ly to manage menopausal symptoms and bleeding.- Bleeding has improved with the current treatment plan.- she has developed HTN Weight gain 8017232 R63. 5 - All lab work was normal-She stopped the Metformin due to nausea and no weight loss- she is interested in the compoundin g semaglutid e- we discussed how it works, side effects and how to use it.- Uterine leiomyoma 055367 05 D25.9 - Managed with continuous use of Junel to control bleeding.- Patient reports improvemen t in bleeding.- has bicornate uterus- since she has new Dx of HTN we will switch OCP to a POP- bleeding precaution s discussed- Continue current treatment and monitor symptoms. Abnormal weight gain 161 337070 R63.5 [id number] Camille Mcfadden MD Main Office [address] [place] [address] 03/22/2024 07:03:23 03/23/2024 09:37:39 Overweight [id number] E66.3 - Patient is currently on semaglutid e therapy, with the next dose being 0.5 mg.- Missed the last dose on Wednesday but will resume with 0.5 mg today.- Advised to be mindful of potential constipati on with the increased dose; recommende d high fiber intake and adequate hydration. - Patient has lost weight, currently fluctuatin g between 160-161 lbs, down from 167 lbs.- Patient is engaged in regular physical activity and is mindful of protein intake to maintain muscle mass.- Discussed the importance of meal planning and controllin g macros to manage weight.- Patient understand s the treatment plan and agrees with the current dosing schedule.- Next follow-up visit scheduled for April 26. Menopausal symptom 46302 002 N95.1 - Patient is currently on Ines control pill for management of menopausal symptoms.- Patient accidental ly discarded a month's supply and is on the second month of the current pack.- Refill for Ines control pill sent to the pharmacy.- Advised patient to inform the pharmacy if there are any issues with insurance coverage due to the discarded pack.- Patient understand s the instructio ns and will follow up if there are any issues with the refill. [id number] Camille Mcfadden MD Main Office [address] [place] [address] 04/26/2024 07:02:41 04/27/2024 17:15:27 Overweight [id number] E66.3 - Patient is currently on semaglutid e 0.5 mg weekly for weight management .- No reported side effects from the current dosage of semaglutid e.- Patient has administer ed five doses, with the sixth dose scheduled for Wednesday.- Patient's weight is fluctuatin g between 157 and 158 pounds, indicating a slight downward trend.- Discussed the option of increasing the dosage of semaglutid e; patient is hesitant due to potential side effects but will consider and inform via message.- Advised patient to maintain a balanced diet with adequate protein intake.- Patient reports no issues with appetite control and no significan t gastrointe stinal side effects, except for mild diarrhea at the beginning of treatment. - Follow-up appointmen t scheduled for May 29 at 9:00 AM to reassess weight management plan and medication dosage. Abnormal weight gain 161 308431 R63.5 [facility] Semaglutid e ? [email or web address] ? Here are the next steps regarding your [facility] CustomRx prescripti on: The day after your visit you will receive an email from [employer] to purchase your medication s. We recommend adding this email to your contact list to prevent it from being filtered by spaTransinsight/junk filters. If you have any questions about how to purchase your order, please use the [employer] email address. ? Please ensure you click the link in the email to confirm the products you'd like. Once you have verified you'd like to receive this product from that email and completed the purchase, you will receive a tracking number via LangoLab and your product is on its way to you! ? If you have any questions at any time, please reach out to us here at [facility], we are happy to help. [id number] Camille Mcfadden MD Main Office [address] [place] [address] 05/29/2024 08:06:01 06/01/2024 09:30:04 Overweight [id number] E66.3 - Patient has been on semaglutid e 1 mg weekly for weight management .- Current weight is 154.9 lbs, which is the lowest recorded weight for the patient.- No reported side effects from the medication .- Patient to continue current dose of semaglutid e 1 mg weekly.- Refill for semaglutid e sent to the pharmacy to ensure continuity during upcoming travel.- Follow-up appointmen t scheduled for July 10 at 9 AM to reassess weight and medication dosage.- Patient educated on the importance of maintainin g the current regimen and monitoring for any potential side effects. Abnormal weight gain 161 128343 R63.5 - Patient reports significan t reduction in food cravings and improved control over eating habits.- No abnormal weight gain noted; weight is stable and decreasing .- Continue monitoring weight and dietary habits.- Patient advised to maintain current lifestyle modificati ons and medication regimen.- Follow-up appointmen t scheduled for July 10 at 9 AM to evaluate progress and make any necessary adjustment s. [facility] Semaglutid e ? [email or web address] de ? Here are the next steps regarding your [facility] CustomRx prescripti on: The day after your visit you will receive an email from [employer] to purchase your medication s. We recommend adding this email to your contact list to prevent it from being filtered by spaTransinsight/Buccaneerk filters. If you have any questions about how to purchase your order, please use the [employer] email address. ? Please ensure you click the link in the email to confirm the products you'd like. Once you have verified you'd like to receive this product from that email and completed the purchase, you will receive a tracking number via Lango[employer] and your product is on its way to you! ? If you have any questions at any time, please reach out to us here at [facility], we are happy to help. Loss of hair [id number] L 65.9 - Patient reports thinning hair, which she attributes to perimenopa use. [id number] Delmy Whiteside MD Main Office [address] [place] [address] 07/13/2024 08:34:37 07/17/2024 14:53:24 Overweight [id number] E66.3 - Patient is currently on semaglutid e 1.0 mg for weight management .- Discussed the option of increasing the dose of semaglutid e,- she is very frustrated because she is not losing weight- Patient is consuming 100 grams of protein daily and maintainin g portion control with three meals a day.- Advised to continue spreading protein intake throughout the day to optimize metabolic benefits.- Encouraged to maintain regular exercise regimen.- Follow-up appointmen t scheduled for August 17 at 8:45 AM to reassess weight management plan and discuss potential dose adjustment of semaglutid e. Abnormal weight gain 161 174519 R63.5 - Patient reports frustratio n with current weight management despite adherence to dietary and exercise recommenda tions.- Reinforced the importance of consistent meal timing and protein distributi on.- Discussed the potential benefits and costs associated with increasing the dose of semaglutid e.- Patient is also on a progestero ne-only control pill, minoxidil, Prozac, and a probiotic, which may influence weight.- No allergies reported.- Patient to monitor weight and dietary intake, and to report any significan t changes or concerns.- Next follow-up scheduled for August 17 at 8:45 AM to evaluate progress and consider further adjustment s to the treatment plan. [facility] Compounded Semaglutid e ? [email or web address] de ? Here are the next steps regarding your [facility] Custom[facility] prescripti on: The day after your visit you will receive an email from [employer] to purchase your medication s. We recommend adding this email to your contact list to prevent it from being filtered by spaTransinsight/Buccaneerk filters. If you have any questions about how to purchase your order, please use the [employer] email address. ? Please ensure you click the link in the email to confirm the products you'd like. Once you have verified you'd like to receive this product from that email and completed the purchase, you will receive a tracking number via [employer] and your product is on its way to you! ? If you have any questions at any time, please reach out to us here at [facility], we are happy to help. [id number] Delmy Whiteside MD Main Office [address] [place] [address] 08/17/2024 08:03:51 08/18/2024 04:10:51 Overweight [id number] E66.3 - Patient is currently on semaglutid e for weight management .- No reported side effects such as nausea, constipati on, or diarrhea.- Patient prefers to stay on the current dose of semaglutid e.- Ordered refill of semaglutid e from the [facility] pharmacy.- Follow-up appointmen t scheduled for September 13 at 7:45 AM. - Abnormal weight gain 161 667060 R63.5 - Patient is on semaglutid e to address abnormal weight gain.- Monitoring patient's response to semaglutid e; no adverse effects reported.- Patient advised that it may take up to 6 months to see significan t changes.- Encouraged patient to continue current regimen and maintain follow-up appointmen ts.- Next follow-up scheduled for September 13 at 7:45 AM. [facility] Semaglutid [facility] ? [email or web address] de ? Here are the next steps regarding your [facility] CustomRx prescripti on: The day after your visit you will receive an email from [employer] to purchase your medication s. We recommend adding this email to your contact list to prevent it from being filtered by spam/junk filters. If you have any questions about how to purchase your order, please use the [employer] email address. ? Please ensure you click the link in the email to confirm the products you'd like. Once you have verified you'd like to receive this product from that email and completed the purchase, you will receive a tracking number via [employer] and your product is on its way to you! ? If you have any questions at any time, please reach out to us here at [facility], we are happy to help. [id number] Delmy Whiteside MD Main Office [address] [place] [address] 09/13/2024 07:03:06 09/15/2024 04:26:37 Overweight [id number] E66.3 - Patient's weight is currently stable at approximat josep 150 lbs.- Continue current medication regimen with semaglutid e.- Reordered semaglutid e prescripti on to be sent to [facility].- Follow-up appointmen t scheduled for October 04 at 7:45 AM to monitor weight and overall health status. - - Bacterial vaginosis [id number] N76.0 - Patient reports discharge without pruritus or odor, consistent with bacterial vaginosis. - Prescribed metronidaz ole 500 mg tablets, to be taken orally twice a day for 7 days.- Educated patient on the use of probiotics such as Culturelle or Align, which may help but are not guaranteed to completely prevent recurrence of bacterial vaginosis. - Advised patient to consider store brands of probiotics as a cost-effec tive alternativ e.- Patient understand s and agrees with the treatment plan. Abnormal weight gain 161 761302 R63.5 - Patient's weight is currently stable at approximat josep 150 lbs.- Continue monitoring weight and dietary habits.- Reordered semaglutid e prescripti on to assist with weight management .- Follow-up appointmen t scheduled for Wednesday, October 04 at 7:45 AM to reassess weight and discuss any further interventi ons if necessary. [facility] Semaglutid e?htt [email or web address]?Here are the next steps regarding your [facility] prescript[facility] on: The day after your visit you will receive an email from [employer] to purchase your medication s. We recommend adding this email to your contact list to prevent it from being filtered by spam/junk filters. If you have any questions about how to purchase your order, please use the [employer] email address.?Please ensure you click the link in the email to confirm the products you'd like. Once you have verified you'd like to receive this product from that email and completed the purchase, you will receive a tracking number via Lango[employer] and your product is on its way to you!? If you have any questions at any time, please reach out to us here at [facility], we are happy to help. [id number] Delmy Whiteside MD Main Office [address] [place] [address] 10/04/2024 07:02:46 10/05/2024 04:15:16 Overweight [id number] E66.3 - Patient's weight has decreased to 149 lbs, indicating progress in weight management .- Continue current regimen of semaglutid e 1.5 mg administer ed weekly via subcutaneo us injection. No reported side effects from the medication .- Educated patient on the importance of not only losing weight but also maintainin g strength and overall health.- Next follow-up appointmen t scheduled for November 15 at 7:30 AM to monitor progress and adjust treatment as necessary. - Abnormal weight gain 161 557970 R63.5 [facility] Semaglutid e ? [email or web address] de ? Here are the next steps regarding your [facility] prescript[facility] on: The day after your visit you will receive an email from [employer] to purchase your medication s. We recommend adding this email to your contact list to prevent it from being filtered by FL[employer]4NEW/spotdock filters. If you have any questions about how to purchase your order, please use the [employer] email address. ? Please ensure you click the link in the email to confirm the products you'd like. Once you have verified you'd like to receive this product from that email and completed the purchase, you will receive a tracking number via L[employer] and your product is on its way to you! ? If you have any questions at any time, please reach out to us here at [facility], we are happy to help. Health Concerns Section Related Observation LastModified by Organization Detai ls LastModified Time None Recorded Concern Status LastModified by Organization Details LastModified Time None Recorded Advance Directives Directive None Recorded Payers Encounter Date Sequence Insurance Name Policy Number Policy Bañuelos Covered Member ID Bañuelos Member ID Guarantor Name 05/29/2024 1 [employer] [place] [id number] Savanah A Ayo [id number] Savanah Ayo 07/13/2024 1 [employer] [place] [id number] Savanah A Ayo [id number] Savanah Ayo 08/17/2024 1 [employer] [place] [id number] Savanah A Ayo [id number] 80 Savanah Ayo 09/13/2024 1 [employer] [place] [id number] Savanah A Ayo [id number] 80 Savanah Ayo 10/04/2024 1 [employer] [place] [id number] Savanah Rollins [id number] Savanah Rollins Notes Date Note Type Note Provider Name and Address Organization Details Recorded Time 05/29/2024 text/html Virtual Visit AttestationModality: VideoProvider Location: Home Patient Location: Home Patient State: {{AL AK AZ AR CA CO CT DE DC FL GA HI ID IL IN [place] ANTHONY* ME IA MN MS MO MT NE NV NH NJ NM N Y NC ND OH OK OR PA RI SC SD TN TX UT VT VA WA WV WI WY}}[{{ ? * }}]I have obtained consent from the patient for use of autoscribe.Preventiv e CareCurrent Control Method: Tubal Ligation.Date of Last Pap Smear: 04/28/2023.Date of Last Mammogram: 12/02/2022. Highest BMI: 28.7Starting weight: 162 BMI: 28.7Current weight: 154.9 BMI: 27.4Goal weight: 135Review of nutrition, exercise, sleep, and stress includes: Savanah is a , 49 year old female presenting for a follow-up visit to discuss her weight management and perimenopausal symptoms, including hair thinning. Weight Management:- Patient has been on a 1 ml dose of an unspecified medication for weight management for the past week.- She reports a weight of 154.9 lbs, which is the lowest she has ever been.- She has not experienced any side effects from the medication.- She plans to continue with the current dose and reassess next month.- Patient has a trip planned for June 29 and will need a refill of her medication before then. Perimenopausal Symptoms:- Patient reports thinning hair, which she attributes to perimenopause.- She is currently on Ines for her perimenopausal symptoms.- She is interested in trying minoxidil to help with her hair thinning and has agreed to start a daily dose of the medication.- She is aware that it may take 3 to 6 months to see significant improvements. Past Medical History:- Patient has a history of anxiety and depression.- She has a bicorneal uterus.- She is up to date with her Pap smear and mammogram screenings.- She is currently taking semaglutide and Ines. PMHx:- Anxiety- Depression- Bicornuate uterus Current Meds:- Semaglutide 1 ml weekly- Ines daily Allergies:- [place] [address], [place], [address], [facility] - [employer] 07/02/2024 11:38:44 07/13/2024 text/html Virtual Visit AttestationModality: VideoProvider Location: Home Patient Location: Home Patient State: {{AL AK AZ AR CA CO CT DE DC FL GA HI ID IL IN IA KS [place] LA M Med* ME IA MN MS MO MT NE NV NH NJ NM N Y NC ND OH OK OR PA RI SC SD TN TX UT VT VA WA WV WI WY}}Pre ventive CareCurrent Control Method: Tubal Ligation.Date of Last Pap Smear: 04/28/2023.Date of Last Mammogram: 12/02/2022.Highest BMI: 28.7Starting weight: 162 BMI: 28.7Current weight: 156 BMI: 27.4Goal weight: 135Review of nutrition, exercise, sleep, and stress includes: Savanah is a , 49 year old female presenting for a follow-up visit to discuss her weight management with semaglutide and recent pneumonia. Weight Management:- Patient has been on semaglutide, currently at a dose of 1.5 milligrams (150 units on the syringe).- She reports getting 100 grams of protein a day and drinking plenty of water.- She has been adhering to a regimen of three meals a day.- Despite these efforts, she expresses some disappointment and frustration with her progress.- She is considering increasing the dose of semaglutide, but is concerned about the cost. Exercise:- Patient mentions engaging in some form of exercise, but the specifics are not clear from the transcript. Recent Illness:- Patient recently had a coldMedications:- In addition to semaglutide, the patient is also on a progesterone-only control pill, minoxidil, Prozac, and a probiotic. Past Medical History:- Patient has a history of anxiety and depression.- She has undergone tubal ligation in the past.- She is up to date with her pap smear and mammogram. PMHx:- Pneumonia- Anxiety- Depression PSHx:- Tubal ligation Current Meds:- Semaglutide 1.5 milligrams- Progesterone only control pill- Minoxidil- Prozac- Probiotic Allergies:- [place] [address], [place], [address], [place] - [employer] [facility] 07/20/2024 15:50:12 08/17/2024 text/html Virtual Visit AttestationModality: VideoProvider Location: Home Patient Location: Home Patient State: {{AL AK AZ AR CA CO CT DE DC FL GA HI ID IL IN IA KS KY LA Jose Jovel* ME IA MN MS MO MT NE NV NH NJ NM N Y NC ND OH OK OR PA RI SC SD TN TX UT VT VA WA WV WI WY}}Pre ventive CareCurrent Control Method: Tubal Ligation.Date of Last Pap Smear: 04/28/2023.Date of Last Mammogram: 12/02/2022. Highest BMI: 28.7Starting weight: 162 BMI: 28.7Current weight: 151 BMI: 27.4Goal weight: 135Review of nutrition, exercise, sleep, and stress includes: Savanah is a , 49 year old female presenting for a follow-up visit to discuss the progress and side effects of semaglutide, and to discuss issues with blood pressure and menstrual irregularities. Medication Management:- Patient has been taking semaglutide, but it is unclear for how long or at what dosage.- Reports no side effects such as nausea, constipation, or diarrhea.- Expresses a desire to maintain the current dosage of semaglutide.- Also taking other medications including minoxidil, norethindrone, valacycloviri, Prozac, and Probiotic. Blood Pressure:- Patient has a history of high blood pressure, but it is unclear if it is currently controlled or if she is on any medication for it.- She was previously taken off a medication due to high blood pressure.- There is a suggestion to keep a log of her blood pressure readings. Menstrual Irregularities:- Patient reports continued menstruation despite taking a pill, the name of which is not specified. Past Medical History:- Patient has a history of anxiety and depression.- It is unclear if these conditions are currently controlled or if she is on any medication for them. Follow-up:- A follow-up appointment is scheduled for September 13. PMHx:- Anxiety- Depression Current Meds:- Semaglutide- Minoxidil- Norethindrone- Valacyclovir- Prozac Allergies:- [place] [address], [place], [address], [place] [facility] 08/19/2024 17:17:52 09/13/2024 text/html Virtual Visit AttestationModality: VideoProvider Location: Home Patient Location: Home Patient State: {{AL AK AZ AR CA CO CT DE DC FL GA HI ID IL IN IA KS KY ANTHONY* ME IA MN MS MO MT NE NV NH NJ NM N Y NC ND OH OK OR PA RI SC SD TN TX UT VT VA WA WV WI WY}}Pre ventive CareCurrent Control Method: Tubal Ligation.Date of Last Pap Smear: 04/28/2023.Date of Last Mammogram: 12/02/2022. Currently using Bundle D 1.5ml weekly Highest BMI: 28.7Starting weight: 162 BMI: 28.7Current weight: 150 BMI: 26.6Goal weight: 135Review of nutrition, exercise, sleep, and stress includes: Savanah is a , 49 year old female presenting for a follow-up visit regarding weight management and a recent issue of vaginal discharge. Weight Management:- Patient reports a current weight of about 150 lbs.- She is currently on semaglutide for weight management and wishes to continue the same dosage.- She is also taking semaglutide, a medication known for its use in weight management. Vaginal Discharge:- Patient reports experiencing vaginal discharge.- She denies any itching or odor associated with the discharge.- She denies it being yeast infection and believes it to be Bacterial Vaginosis (BV).- She has requested a pill for the same. Probiotic Use:- Patient is considering the use of a probiotic, specifically Culturelle or Align, to potentially help with BV. Medication History:- In addition to Semaglutide and semaglutide, the patient is also taking cefpoxazine, minoxidil, norethindrone, valacyclovir, and Prozac.- She reports no known allergies. Gynecological History:- Patient is up to date with her Pap smear and mammogram.- She has a history of a bicornuate uterus. Mental Health:- Patient has a past medical history of anxiety and depression.- She is currently on Prozac, a medication used for these conditions. PMHx:- Anxiety- Depression- Bicornuate uterus Current Meds:- Semaglutide- Cefpodoxime- Minoxidil- Norethindrone- Valacyclovir- Prozac [place]ergies:- [place] [address] [place], [address], [facility] [employer] 09/14/2024 17:43:36 10/04/2024 text/html Virtual Visit AttestationModality: VideoProvider Location: Home Patient Location: Home Patient State: {{AL AK AZ AR CA CO CT DE DC FL GA HI ID IL IN IA [place] LA Jose Jovel* ME IA MN MS MO MT NE NV NH NJ NM N Y NC ND OH OK OR PA RI SC SD TN TX UT VT [place]}}Cur rently using Bundle D 1.5ml weeklyHighest BMI: 28.7Starting weight: 162 BMI: 28.7Current weight: 147 BMI: 26Goal weight: 135Review of nutrition, exercise, sleep, and stress includes: Savanah is a , 49 year old female presenting for a follow-up visit regarding weight management and medication review. Weight Management:- Patient reports a decrease in weight to 149 lbs.- She is currently on a weekly regimen of semaglutide 1.5 mg for weight management.- She reports no side effects from the medication.- She administers the medication herself on a weekly basis.- The patient's goal is not only to lose weight but also to gain strength. Medication Review:- Current medications include semaglutide and Valcyclovir as needed. Screenings:- Patient is up to date with Pap smear and plans to schedule a mammogram. Past Medical History:- Patient has a history of anxiety and depression.- She also has a history of fibroids and bicornerate uterus.- She has been diagnosed with hypertension. PMHx:- Anxiety- Depression- Fibroids- Bicornuate uterus- Hypertension Current Meds:- Semaglutide, weekly- Valacyclovir as needed Allergies:- [place] [address], [place], [address], [facility] - [facility] 10/11/2024 16:26:34 OBGyn Episode No OBEpisode recorded.
--- OUTSIDE RECORDS SUMMARY | 2024-11-08 17:07 | XMS_ITS | Encounter Summary ---
Author Organization [facility] Address [address] [place] [address] Phone Care Team Providers Care Forensic Medical Examiner Name Role Phone Femi Rodriguez DO Primary Care Provider +1- [phone] Encounter Details Date Type Department Care Team (Latest Contact Info) Description 10/12/2017 Transcribe Orders [facility] Laboratory [address] [place], [place] [id number] Prudence Pride ARNP Pre-employment health screening examination (Primary Dx) Social History Tobacco Use Types Packs/Day Years Used Date Smoking Tobacco: Never Assessed Sex and Gender Information Value Date Recorded Sex Assigned at Not on file Gender Identity Not on file Sexual Orientation Not on file documented as of this encounter Plan of Treatment Not on file documented as of this encounter Results * T spot TB test (10/12/2017 12:27 PM EDT) T SPOT Tuberculosis Negative [facility] Blood 10/12/2017 12:2 7 PM EDT 10/12/2017 12:30 PM EDT Prudence [facility] BLOOD ORDERABLE S [facility] [address] [place] [address] documented in this encounter Visit Diagnoses Diagnosis Pre-employment health screening examination- Primary Health examination of defined subpopulation documented in this encounter Care Teams Forensic Medical Examiner Relationship Specialty Start Date End Date Femi Rodriguez DO [address] [place], [place] [id number] PCP - General Internal Medicine 10/12/17 documented as of this encounter Additional Source Comments The information contained in this document represents components of the legal health record. It is not the complete legal health record.[facility]
--- OUTSIDE RECORDS SUMMARY | 2024-11-08 17:07 | XMS_ITS | Continuity of Care Document ---
Author Organization [facility] Address [address] [place] [address] Phone Care Team Providers Care Ingot Weigher Name Role Phone Bronw SWAIN, YULISA, Ricardo MAGANA Unavailable U navailable Allergies, Adverse Reactions, Alerts Substance Reaction Status Criticality DIPHENHYDRAMINE HCL Active No Infor mation Medications Medication Instructions Dosage Effective Dates (start - stop) Status Comments Ines 0.35 mg tablet - Active Procedures Procedure Date Sngl/mx Inj Scleros-veins; Shirley 25 No Charge For Services No Charge For Services Sngl/mx Inj Scleros-veins; Shirley 25 18-30 mmHg Thigh length gradient boris bakari stocking Offic Cons New/estab Mod-hi 60- CT & [place] Duplex Scan-extrem Veins; Comp- CT & [place] Advance Directives Directive Yes / No Effective Date File Name No Information Encounters Encounter Description Practice Location Reason(s) For Visit Diagnoses Date Provider Providers Copied on Encounter [facility], [address], [place], [id number], tel:[phone] [facility] No Information Brown SWAIN, YULISA, IZZY Silva. [address], [place], [id number] , [place]. tel: [phone] [facility], [address] [place] [address] [address], [id number], [place] tel:[phone] [facility] [place] Venous insufficiency (chronic) (peripheral) 0- 5 Brown SWAIN, RVT, RPVI Ricardo. [address] [place] [address], [place] [address], [place], [id number] , [place]. tel: [phone] [facility] [place], [address] [place] [address] [address], [id number], [place] tel:[phone] [facility] [place] Nevus, non-neoplastic 5 Mollitor TEST SKEIN WINDER Jasmina . [address] [place] [address], [place], [id number] , [place]. tel: [phone] [facility] [place], [address] [place] [address] [address], [id number], [place] tel:[phone] [facility] [place] Nevus, non-neoplastic 5 Mollitor TEST SKEIN WINDER Jasmina . [address] [facility], [place] [address], [place], [id number] , [place]. tel: [phone] [facility] [place], [address] [place] [address] [address], [id number], [place] tel:[phone] [facility] [place] Nevus, non-neoplasticP hlebitis and thrombophlebiti s of superficial vessels of lower extremities, bilateral 5 Mollitor TEST SKEIN WINDER Jasmina . [address] [facility], [facility] [address], [place], [id number] , [place]. tel: [phone] [facility] [place], [address] [place] [address] [address], [id number], [place] tel:[phone] [facility] [place] Nevus, non-neoplastic 5 Mollsaturnino Freedman . [address] [facility], [place] [address], [place], [id number] , [place]. [phone] [place], [address] [place] [address] [address] [address], [id number], [place] tel:[phone] [facility] [place] Venous insufficiency (chronic) (peripheral) 5 Brown SWAIN RVT, RPVI Robert. [address] [place] [address], [place], [id number] , [place]. [phone] Referring Provider: Ricardo Dasilva MD, RVT, IZZY, [address] [place] [address] [address] [facility], [place], [address] . tel:[phone] Offic Cons New/estab Mod-hi 60- CT & [place] [facility], [address] [place] [address] [address] [address], [id number], [place] [phone] [facility] [place] Lymphedema, not elsewhere classifiedPruri tus, unspecifiedHere ditary lymphedemaVenou s insufficiency (chronic) (peripheral)Nev us, non-neoplastic 5 Brown SWAIN RVT, RPVI Robert. [address] [place] [address], [place], [id number] , [place]. tel:[phone] [place] [facility], [address] [place] [address] [address] [address], [id number], tel:[phone] [facility] Chronic venous hypertension (idiopathic) with other complications of bilateral lower extremity 5 Brown SWAIN RVT, RPVI Robert. [address] [place] [address], [place] [address], [place], [id number] , [place]. [phone] Referring Provider: Ricardo Dasilva MD, RVT, IZZY, [address] [place] [address], [place], [address] . tel:[phone] Family History Family Member Type Diagnosis Age At Onset No Information Payers Payer name Insurance type Covered green party ID Authoriza tion(s) Blue Benefit [employer] of [facility] [id number] Social History Type Description Quantity Date Captured Comments Sex Female Smoking Status No Information Chief Complaint And Reason For Visit No Information Reason For Referral Reason For Referral No Information Plan Of Treatment Date Type Action Status Goal Diet education completed Goal Diet education completed Referral Ordered: Weight management: Referral to physician timeframe: 3 Months (related to Body mass index (BMI) 27.0-27.9, adult) ordered Referral Ordered: Weight management: Referral to physician timeframe: 3 Months (related to Body mass index (BMI) 27.0-27.9, adult) ordered Appointment Savanah Rollins (pt Requested A 7:30) BOOKED History Of Present Illness Encounter Date Complaint History Of Prese nt Illness No Information Functional Status Date Functional Assessmen t No Information Instructions Date Instruction Additional Infor sohaion Diet education Related to Body mass index (BMI) 27.0-27.9, adult Giving Encouragement to exercise Related to Body mass index (BMI) 27.0-27.9, adult Lifestyle education Related to B romi mass index (BMI) 27.0-27.9, adult Patient education booklet given Related to Nevus, non-neoplastic Diet education Related to Body mass index (BMI) 27.0-27.9, adult Giving Encouragement to exercise Related to Body mass index (BMI) 27.0-27.9, adult Lifestyle education Related to B romi mass index (BMI) 27.0-27.9, adult Compression stocking usage as conservative measure Related to Venous insufficiency (chronic) (peripheral) Patient education booklet given Related to Venous insufficiency (chronic) (peripheral) Assessments Type Assessment Date No Information Patient Care Teams Name Effective Dates (start - stop) Status Members No Information
--- OUTSIDE RECORDS SUMMARY | 2024-11-08 17:07 | XMS_ITS | Clinical Summary ---
Author Organization [facility] Address [address] [place] [address] Phone Care Team Providers Care Metal Alloy Scientist Name Role Phone Femi Rodriguez Angel Primary Care Provider +1- [phone] Allergies No known active allergies Medications No known medications Active Problems No known active problems Immunizations Name Administration Dates Next Due COVID-19 (Pre-05/17) Moderna Vaccine, mRNA, PF 0 04/18/2021 Influenza Quadrivalent Preservative Free IM 04/26,06/06/2021 Influenza, Unspecified Formulation 05/08/2020, Tdap 09/10/2021 Social History Tobacco Use Types Packs/Day Years Used Date Smoking Tobacco: Never Assessed Education Answer Date Recorded Are you interested in more education? Not on carmen e 11/20/2022 Are you concerned about learning? Not on file 11/20/2022 No 11/20/2022 No 11/20/2022 Digital Access Answer Date Recorded No 12/19/2022 No 12/19/2022 No 12/19/2022 Reliable internet access at home? Not on file 12/19/2022 Device with a working camera? Not on file Sex and Gender Information Value Date Recorded Sex Assigned at Not on file Gender Identity Not on file Sexual Orientation Not on file Last Filed Vital Signs Vital Sign Reading Time Taken Comments Blood Pressure 129/80 03/02/2018 12:35 PM EDT Pulse 76 03/02/2018 12:35 PM EDT Temperature - - Respiratory Rate - - Oxygen Saturation 99% 03/02/2018 12:35 PM EDT Inhaled Oxygen Concentration - - Weight 63.5 kg (140 lb) 03/02/2018 12:35 PM EDT Height 160 cm (5' 3 ) 03/02/2018 12:35 PM EDT Body Mass Index 24.8 03/02/2018 12:35 PM EDT Plan of Treatment Health Maintenance Due Date Last Done Comments LIPID PANEL 1977 DEPRESSION SCREENING 1989 SMOKING Hx and SMOKELESS TOBACCO SCREENING 1990 HEPATITIS C SCREENING 1995 HIV ONE-TIME SCREENING (18-65 YEARS) 1995 PAP SMEAR 1998 MAMMOGRAM 2017 COLOGUARD 2022 COLONOSCOPY 2022 COLORECTAL CANCER SCREENING 2022 FIT TEST 2022 FOBT 2022 SIGMOIDOSCOPY 2022 VIRTUAL COLONOSCOPY 2022 INFLUENZA VACCINE (#1) 2024 , 06/06/2021, 05/08/2020, Additional history exists COVID-19 VACCINE ( season) 2024 04/18/2021 Adult Td,Tdap Booster 09/10/2031 09/10/2021 , 07/26/2014, 01/12/2013, Additional history exists HEPATITIS A VACCINES Aged Out No long er eligible based on patient's age to complete this topic HIB VACCINES Aged Out No longer eligi ble based on patient's age to complete this topic MENINGOCOCCAL VACCINES (ACWY) Aged Out No longer eligible based on patient's age to complete this topic PNEUMOCOCCAL VACCINES (0-49 years) Aged Out No longer eligible based on patient's age to complete this topic Medical Devices Not on file Savanah Rollins Personal/Family Self 1975 [address] [facility] [place] [place] [address]Bucky Rollins, Savanah Personal/Family Self 1975 [address] [facility] [place] [address]Bucky Rollins, Savanah Personal/Family Self 1975 [address] [facility] [address] Ayo, Savanah Personal/Family Self 1975 [address] [facility] [address] Ayo, Savanah Personal/Family Self 1975 [address] [facility] [place] [address]Bucky Rollins, Savanah Personal/Family Self 1975 [address] [facility] [place] [address]Bucky Rollins, Savanah Personal/Family Self 1975 [address] [facility] [place] [address]Bucky Rollins, Savanah Personal/Family Self 1975 [address] [place] [address] Care Teams Metal Alloy Scientist Relationship Specialty Start Date End Date Femi Rodriguez DO [address] [place] [address] PCP - General Internal Medicine 10/12/17 Additional Source Comments The information contained in this document represents components of the legal health record. It is not the complete legal health record.[facility]
--- OUTSIDE RECORDS SUMMARY | 2024-11-08 17:07 | XMS_ITS | Encounter Summary ---
Author Organization [facility] Address [address] [place] [address] Phone Care Team Providers Care Rehab Aide Name Role Phone Femi Rodriguez DO Primary Care Provider +1- [phone] Encounter Details Date Type Department Care Team (Late st Contact Info) Description 03/22/2023 Transcribe Orders [facility] Specimen Processing [address] [place], [place] [id number] Sybil Flannery, EPIC TRAINER [address] [facility] [address] [facility], [address] [address] [place] [address] [email or web address] Social History Tobacco Use Types Packs/Day Years [...] on file documented as of this encounter Visit Diagnoses Not on filedocumented in this encounter Care Teams Rehab Aide Relationship Specialty Start Date End Date Femi Rodriguez DO [address] [place] [address] PCP - General Internal Medicine 10/12/17 documented as of this encounter Additional Source Comments The information contained in this document represents components of the legal health record. It is not the complete legal health record.[facility]
== END 2024-11-08 15:17 | disposition home or self-care (01) ==
LOC: HO.HMCH 14:21
PROVIDERS: PCP Physician Assistant; Visit Provider Physician Assistant
DX: Z00.00 Encounter for general adult medical examination without abnormal findings (principal); Z12.4 Encounter for screening for malignant neoplasm of cervix; I10 Essential (primary) hypertension; N93.8 Other specified abnormal uterine and vaginal bleeding; L20.84 Intrinsic (allergic) eczema

== ENCOUNTER → 2024-11-08 14:20 | Outpatient (BNVA) | payer OTHER, SELFPAY | PROVIDERS: PCP Physician Assistant; Visit Provider Physician Assistant | DX: Z00.00 Encounter for general adult medical examination without abnormal findings (principal); I10 Essential (primary) hypertension; N93.8 Other specified abnormal uterine and vaginal bleeding; L20.84 Intrinsic (allergic) eczema | CPT/HCPCS: 96127 ==

== ENCOUNTER 2024-12-08 15:44 | Outpatient (REF) | payer OTHER, SELFPAY ==
--- OUTSIDE RECORDS SUMMARY | 2024-12-08 15:47 | XMS_ITS | Encounter Summary ---
Author Organization [facility] Address [address] [place] [address] Phone Care Team Providers Care Cost Control Supervisor Name Role Phone Femi Rodriguez DO Primary Care Provider +1- [phone] Encounter Details Date Type Department Care Team (Late st Contact Info) Description 03/22/2023 Transcribe Orders [facility] Specimen Processing [address] [place] [address] Sybil Flannery, BLACK BELT [address] [facility] [address] [facility], [address] [address] [place] [address] [email or web address] Social History Tobacco Use Types Packs/Day Years [...] with a working camera? Not on file Comments Unknown Sex and Gender Information Value Date Recorded Sex Assigned at Not on file Legal Sex Female 12:09 PM EDT Gender Identity Not on file Sexual Orientation Not on file documented as of this encounter Plan of Treatment Not on file documented as of this encounter Visit Diagnoses Not on filedocumented in this encounter Care Teams Cost Control Supervisor Relationship Specialty Start Date End Date Femi Rodriguez DO [address] [place] [address] PCP - General Internal Medicine 10/12/17 documented as of this encounter Additional Source Comments The information contained in this document represents components of the legal health record. It is not the complete legal health record.[facility]
--- OUTSIDE RECORDS SUMMARY | 2024-12-08 15:47 | XMS_ITS | Clinical Summary ---
Author Organization [facility] Address [address] [address] Phone Care Team Providers Care Print Line Inspector Name Role Phone Femi Rodriguez Angel Primary Care Provider +1- [phone] Allergies No known active allergies Medications No known medications Active Problems No known active problems Immunizations Immunization Administration Dates Next Due COVID-19 (Pre-05/17) Moderna [...] 05/08/2020, Additional history exists COVID-19 VACCINE ( - 2023- season) 2024 04/18/2021 Adult Td,Tdap Booster 09/10/2031 [...] this topic Medical Devices Not on file Insurance [facility] [place] [address] [place] [address] [place] [place] [address] [employer] Care Teams Print Line Inspector Relationship Specialty Start Date End Date Femi Rodriguez DO [address] [place] [address] PCP - General Internal Medicine 10/12/17 Additional Source Comments The information contained in this document represents components of the legal health record. It is not the complete legal health record.[facility]
--- OUTSIDE RECORDS SUMMARY | 2024-12-08 15:47 | XMS_ITS | Data Portability ---
Author Organization [facility] Address [address] [place] [address] Assessment Encounter Date Assessment Date Assessment LastModified by Organization Details LastModified Time 07/13/2024 07/13/2024 I spent 15 minutes of iwij-sc-yxed counselling and care coordination time with the patient. This includes reviewing medical records (medical, surgical, family and social history); updating medication and allergy information in the electronic health record; and ordering labs, medications, and education materials to continue patient care. Not available 07/13/2024 09:23:29 08/17/2024 08/17/2024 I spent 15 minutes of yxlx-ae-icug counselling and care coordination time with the patient. This includes reviewing medical records (medical, surgical, family and social history); updating medication and allergy information in the electronic health record; and ordering labs, medications, and education materials to continue patient care. Not available 08/17/2024 08:56:24 09/13/2024 09/13/2024 I spent 10 minutes of geln-qm-oeat counselling and care coordination time with the patient. This includes reviewing medical records (medical, surgical, family and social history); updating medication and allergy information in the electronic health record; and ordering labs, medications, and education materials to continue patient care. Not available 09/13/2024 07:51:18 10/04/2024 10/04/2024 I spent 10 minutes of lvqr-dv-haub counselling and care coordination time with the patient. This includes reviewing medical records (medical, surgical, family and social history); updating medication and allergy information in the electronic health record; and ordering labs, medications, and education materials to continue patient care. Not available 10/04/2024 07:50:11 11/15/2024 11/15/2024 I spent 10 minutes of nqeb-tg-wkyc counselling and care coordination time with the patient. This includes reviewing medical records (medical, surgical, family and social history); updating medication and allergy information in the electronic health record; and ordering labs, medications, and education materials to continue patient care. Not available 11/15/2024 07:35:41 Plan of Treatment Reminders Order Date Submit Date Provider Last Modified By Organization Details Last Modified Time Details Appointments [id number] 2024 04:15A Jose Herzog, AIRCRAFT MAINTENANCE INSTRUCTOR Not available Not available Not available Lab None recorded. Referral None recorded. Procedures None recorded. Surgeries None recorded. Imaging None recorded. Medication Orders minoxidil 2.5 mg tablet 2024 025 [facility], [address] [place] [address], [id number], 11/15/2024 07:36:05 Bundle D: 1.5 mL/week - [facility] 2024 025 [facility] (Clinic Pay Unmonitored Fax), [address] [place] [address], [id number], 11/15/2024 07:40:28 Bundle D: 1.5 mL/week - [facility] 2024 025 [facility] (Clinic Pay Unmonitored Fax), [address], [id number], 10/04/2024 07:53:03 metronida zole 500 mg tablet 2024 025 [facility], [address] [place] [address], [id number], 10/04/2024 07:52:46 Bundle D: 1.5 mL/week - [facility] 2024 025 [facility] (Clinic Pay Unmonitored Fax), [address] [place] [address], [id number], 09/13/2024 08:00:56 Bundle D: 1.5 mL/week - [facility] 2024 025 [facility] (Clinic Pay Unmonitored Fax), [address] [place] [address], [id number], 08/17/2024 09:00:56 Bundle D: 1.5 mL/week - [facility] 2023 024 [facility] (Clinic Pay Unmonitored Fax), [address] [place] [address], [id number], 07/13/2024 09:30:50 Patient TargetsNo targets recorded. Patient Instructions Encounter Date Encounter Id Patient Instructions Last Modified By Organization Details Last Modified Time 07/13/2024 [id number] Any requested follow-up visits are listed below in the Plan of Care section. Go directly to the [facility] surgical scheduler at [email or web address] to book a time. Not available 07/12/2024 [...] your care! Not available 07/13/2024 09:21:59 08/17/2024 [id number] Any requested follow-up visits are listed below in the Plan of Care section. Go directly to the [facility] surgical scheduler at [email or web address] to book a time. Not available 08/16/2024 [...] your care! Not available 08/17/2024 08:56:49 09/13/2024 [id number] Any requested follow-up visits are listed below in the Plan of Care section. Go directly to the [facility] surgical scheduler at [email or web address] to book a time. Not available 09/12/2024 16:54:03 It was a pleScriptRock e to meet with you today! We [...] prone to it, it could potentially help. Yuzo-zjl-lwvuehb options like Culturelle or Align are recommended, [...] your care! Not available 09/13/2024 07:50:06 10/04/2024 [id number] Any requested follow-up visits are listed below in the Plan of Care section. Go directly to the [facility] surgical scheduler at [email or web address] to book a time. Not available 10/02/2024 [...] with your care! Not available 10/04/2024 07:49:08 11/15/2024 [id number] Any requested follow-up visits are listed below in the Plan of Care section. Go directly to the [facility] surgical scheduler at [email or web address] to book a time. Not available 11/14/2024 19:30:07 It was a pleasur e to meet with you today! We discussed your health concerns related to weight management and hair growth. Your Care Plan Together, we decided that you would: - Continue your current dosage of semaglutide for weight management. - Monitor your weight and overall health over the next few months to determine if any adjustments to your medication are needed. - Continue your exercise routine and intermittent fasting as you have been. - Refill your minoxidil prescription, which will be sent to [facility]. - Continue your current control regimen, with a new script started today that covers the next three months. - Schedule a follow-up appointment for December 13 at 7:15 AM to reassess your progress and discuss any further steps. Please carefully review the care plan we have decided upon above, including specific information about your medication, and any other important details about your overall care. Thank you for trusting us with your care! Not available 11/15/2024 07:34:23 Reason for Referral None Reported. Problems Name Problem SNOMED Code Status Onset Date Resolution Date Notes Provider Name and Address Organization Details Recorded Time Body mass index 25-29 - overweight 416717518 Active [address] [place] [address] [place], [address], [facility] 5 14:27:54 Menopausal symptom 45580409 Active [address]24 [place] [address] [place], [address], [facility] 4 12:25:00 Uterine leiomyoma 01793690 Active [address]24 [place] [address] [place], [address], [facility] 4 16:00:14 Weight gain 0223625 Active 024 [place] [address] [place], [address], [facility] 4 16:00:14 Health education given 151776379 Active 024 [place] [address] [place], [address], [facility] 4 15:49:17 Anemia 537428095 Active 024 [place] [address] [place], [address], [facility] 4 15:53:33 Obesity 052186676 Active 024 Zully Post, AIRCRAFT MAINTENANCE INSTRUCTOR [address] [place], [address], [facility] 4 08:25:04 Overweight 687132291 Active 024 Zully Post, AIRCRAFT MAINTENANCE INSTRUCTOR [address] [place], [address], [facility] 4 08:59:40 Abnormal weight gain 853608071 Active 024 Zully Post, AIRCRAFT MAINTENANCE INSTRUCTOR [address] [place], [address], [facility] 4 09:00:24 Loss of hair 995978039 Active 024 Zully Post, AIRCRAFT MAINTENANCE INSTRUCTOR [address] [place], [address], [facility] 4 09:00:18 Bacterial vaginosis 022854468 Active 025 Zully Post, AIRCRAFT MAINTENANCE INSTRUCTOR [address] [place], [address], [facility] 5 07:46:34 Problem Notes None recorded. Procedures Surgical History Date Name Laterality Status Provider Name and Address Organization Details Recorded Time 3 Date of Last Pap Smear completed Zully Post, AIRCRAFT MAINTENANCE INSTRUCTOR [address] [place], [address], [facility] 07/28/2023 12:28:16 3 Date of Last Mammogram completed Zully Post, AIRCRAFT MAINTENANCE INSTRUCTOR [address] [place], [address], [facility] 07/28/2023 12:27:57 Imaging Results None recorded. Procedure Notes None recorded. Medical Equipment None Reported. Allergies No known drug allergies Medications Name Sig Start Date Stop Date Status Note LastModified by Organization Details LastModified Time Bundle D: 1.5 mL/week - [facility] [...] Not Available Not Available Not Available Bundle B: 0.5 mL/week - [facility] Inject 50 units (0.5mg) SQ once weekly. 2023 active Not Available Not Available Not Avai lable Bundle C: 1.0 mL/week - [facility] [...] Available Not Available minoxidil 2.5 mg tablet Take 1 tablet every day by oral route. 2024 active Not Available Not Available Not Avai lable norethindro ne (contracept adryan) 0.35 mg tablet TAKE 1 TABLET EVERY DAY BY MOUTH DIRECTED 2024 active Not Available Not Available Not Avai lable June08/14 (28) 1 mg-20 mcg (21)/75 mg (7) tablet Take 1 tablet every day by oral route as directed. 02/09 completed Not Available Not Available Not Available Vitals Date Recorded Body height Body mass index (BMI) Body weight Provider Name and Address Organization Details Last Updated DateTime 08/17/2024 160.02 cm 27.6 kg/m2 97862.41 g Zully Post, AIRCRAFT MAINTENANCE INSTRUCTOR [address] [place], [address], [facility] 08/16/2024 08:50:10 Date Recorded Body height Body mass index (BMI) Body weight Provider Name and Address Organization Details Last Updated DateTime 09/13/2024 160.02 cm 26.6 kg/m2 80044.86 g Zully Post, AIRCRAFT MAINTENANCE INSTRUCTOR [address] [place], [address], [facility] 09/13/2024 07:44:31 Date Recorded Body height Body mass index (BMI) Body weight Provider Name and Address Organization Details Last Updated DateTime 10/04/2024 160.02 cm 26 kg/m2 25491.08 g Zully Post, AIRCRAFT MAINTENANCE INSTRUCTOR [address] [place], [address], [facility] 10/04/2024 07:44:30 Date Recorded Body height Body mass index (BMI) Body weight Provider Name and Address Organization Details Last Updated DateTime 11/15/2024 160.02 cm 25.7 kg/m2 56489.89 g Zully Post, AIRCRAFT MAINTENANCE INSTRUCTOR [address] [place], [address], [facility] 11/15/2024 07:29:47 Date Recorded Body height Body mass index (BMI) Body weight Provider Name and Address Organization Details Last Updated DateTime 07/13/2024 160.02 cm 27.6 kg/m2 [address].[place] [address] [place], [address], [facility] 07/13/2024 09:22:59 Social History Question Answer Notes LastModified by Organizat [employer] Details LastModified Time Tobacco Smoking [place] [address] [place], [address], [facility] 10/04/2024 07:51:02 What Is Your Relationship Status? Information not available 10/04/2024 Sex: Female Functional Status Question Answer Note LastModified by Organizat [employer] Details LastModified Time What is your level of alcohol consumption? Occasional Information not available 10/04/2024 Are you currently employed? Yes Information not available 10/04/2024 Mental Status None recorded. Family History Relationship Description Onset Age of this Age Resolved Age Notes LastModified by Organization Details LastModified Time Father No current problems or disability Not available 10/04 07:50:51 Mother No current problems or disability Not available 10/04 07:50:51 Medical History Condition Response Anxiety Disorder Y Other Depression/ depression Hypertension Y Gynecological History Statement/Question Response Date of Last Pap Smear 04/28/2023 Current Control Method Tubal Ligat ion Date of Last Mammogram 12/02/2022 Date of LMP 09/24/23 Approximate Obstetrics History GPAL:G 3 P 3 0 0 0 Type Value Full Term 3 Total 3 Past Encounters Encounter ID Performer Location Encounter Start Date Encounter Closed Date Diagnosis/Indication Diagnosis SNOMED-CT Code Diagnosis ICD10 Code Diagnosis Note [id number] Zully Herzog NP Main Office [address] [place] [address] 07/28/2023 14:31:50 07/29/2023 06:41:59 Abnormal perimenopausal bleeding 329847297 N95.8 - Patient's heavy and prolonged menstrual [...] effectiven ess of the treatment. Uterine leiomyoma 728921 05 D25.9 - Patient's ultrasound revealed the presence of uterine fibroids, which could be contributi ng to her heavy menstrual bleeding.- No immediate interventi on is planned for the fibroids as they are not causing significan t discomfort or complicati ons.- Will continue monitoring the fibroids and consider interventi on if they increase in size or cause worsening symptoms. Weight gain 5439965 R63. 5 - Patient's struggle with weight [...] progress and adjust the plan as necessary. [id number] Zully Herzog, YT Main Office [address] [place] [address] 10/01/2023 14:32:01 10/04/2023 06:07:28 Menopausal symptom 07358372 N95.1 - Patient is taking Junel continuous ly to manage menopausal symptoms and bleeding.- Bleeding has improved with the current treatment plan.- Patient will continue the current regimen and monitor her symptoms. Uterine leiomyoma 860968 05 D25.9 - Managed with continuous use of Nora to control bleeding.- Patient reports improvemen t in bleeding.- Continue current treatment and monitor symptoms. Weight gain 3461829 R63. 5 - Discussed potential use of metformin for weight loss and insulin resistance .- Prescribed metformin with a gradual dose increase plan provided in discharge tiana casey.- Scheduled follow-up appointmen t in one month to assess progress and discuss any concerns.- will get baseline labs- Patient will continue her current exercise and diet regimen. - Anemia 364413872 D64.9 - Patient's hemoglobin levels have improved but are still trending down.- Patient is taking a multivitam in and has stopped bleeding due to continuous use of Junel- Ordered lab work to reassess hemoglobin levels and will communicat e any significan t findings before the next appointmen t. Adult heal th examination 856349125 Z00.00 - Ordered lab work, including insulin, B12, and hemoglobin levels, to monitor patient's overall health.- Patient will have labs done at [facility] and results will be uploaded to the system.- Scheduled follow-up appointmen t in one month to review lab results and discuss any concerns. Health edu cation given 090541750 N95.9 [id number] Zully Herzog, TY Main Office [address] [place] [address] 12/23/2023 07:03:26 12/23/2023 12:02:24 Weight gain 2028237 R63.5 - All lab work was normal- continues on the Metformin which is controllin g her urge for sugar and binge eating- Menopausal symptom 89264 002 N95.1 - Patient is taking Junel continuous ly to manage menopausal symptoms and bleeding.- Bleeding has improved with the current treatment plan.- she has developed HTN, we will switch OCP for POP Uterine leiomyoma 159855 05 D25.9 - Managed with continuous use of Junel to control bleeding.- Patient reports improvemen t in bleeding.- has bicornate uterus- since she has new Dx of HTN we will switch OCP to a POP- bleeding precaution s discussed- Continue current treatment and monitor symptoms. [id number] Zully Herzog, TY Main Office [address] [place] [address] 02/10/2024 07:03:16 02/10/2024 14:33:33 Menopausal symptom 17495854 N95.1 - Patient is takinga POP continuous ly to manage menopausal symptoms and bleeding.- Bleeding has improved with the current treatment plan.- she has developed HTN Weight gain 9312784 R63. 5 - All lab work was normal-She stopped the Metformin due to nausea and no weight loss- she is interested in the compoundin g semaglutid e- we discussed how it works, side effects and how to use it.- Uterine leiomyoma 400229 05 D25.9 - Managed with continuous use of Junel to control bleeding.- Patient reports improvemen t in bleeding.- has bicornate uterus- since she has new Dx of HTN we will switch OCP to a POP- bleeding precaution s discussed- Continue current treatment and monitor symptoms. Abnormal weight gain 161 172784 R63.5 [id number] Zully Herzog, TY Main Office [address] [place] [address] 03/22/2024 07:03:23 03/23/2024 09:37:39 Overweight 937989019 E66.3 - Patient is currently on semaglutid [...] visit scheduled for April 26. Menopausal symptom 87624 002 N95.1 - Patient is currently on [...] there are any issues with the refill. [id number] Zully Herzog NP Main Office [address] [place] [address] 04/26/2024 07:02:41 04/27/2024 17:15:27 Overweight 555838130 E66.3 - Patient is currently on semaglutid [...] and medication dosage. Abnormal weight gain 161 231573 R63.5 [facility] ? [email or web address] ? Here are the next steps regarding your [facility] prescripti on: The day after your visit you will receive an email from [employer] to purchase your medication s. We recommend adding this email to your contact list to prevent it from being filtered by [employer]ChoiceStream/junk filters. If you have any questions about how to purchase your order, please use the [employer] email address. ? Please ensure you click the link in the email to confirm the products you'd like. Once you have verified you'd like to receive this product from that email and completed the purchase, you will receive a tracking number via [employer] and your product is on its way to you! ? If you have any questions at any time, please reach out to us here at [facility], we are happy to help. [id number] Zully Herzog NP Main Office [address] [place] [address] 05/29/2024 08:06:01 06/01/2024 09:30:04 Overweight 918725149 E66.3 - Patient has been on semaglutid [...] potential side effects. Abnormal weight gain 161 939097 R63.5 - Patient reports significan t reduction [...] s. [facility] Semaglutid e ? [email or web address] ? Here are the next steps regarding your [facility] prescripti on: The day after your visit you will receive an email from [employer] to purchase your medication s. We recommend adding this email to your contact list to prevent it from being filtered by spam/junk filters. If you have any questions about how to purchase your order, please use the [employer] email address. ? Please ensure you click the link in the email to confirm the products you'd like. Once you have verified you'd like to receive this product from that email and completed the purchase, you will receive a tracking number via [employer] and your product is on its way to you! ? If you have any questions at any time, please reach out to us here at [facility], we are happy to help. Loss of hair 141090684 L 65.9 - Patient reports thinning hair, which she attributes to perimenopa use. [id number] Zully Herzog NP Main Office [address] [place] [address] 07/13/2024 08:34:37 07/17/2024 14:53:24 Overweight 483527291 E66.3 - Patient is currently on semaglutid [...] of semaglutid e. Abnormal weight gain 161 638819 R63.5 - Patient reports frustratio n with [...] further adjustment s to the treatment plan. [facility] Semaglutid e ? [email or web address] ? Here are the next steps regarding your [facility] prescripti on: The day after your visit you will receive an email from [employer] to purchase your medication s. We recommend adding this email to your contact list to prevent it from being filtered by spam/junk filters. If you have any questions about how to purchase your order, please use the [employer] email address. ? Please ensure you click the link in the email to confirm the products you'd like. Once you have verified you'd like to receive this product from that email and completed the purchase, you will receive a tracking number via [employer] and your product is on its way to you! ? If you have any questions at any time, please reach out to us here at [facility], we are happy to help. [id number] Zully Herzog NP Main Office [address] [place] [address] 08/17/2024 08:03:51 08/18/2024 04:10:51 Overweight 299256861 E66.3 - Patient is currently on semaglutid e for weight management .- No reported side effects such as nausea, constipati on, or diarrhea.- Patient prefers to stay on the current dose of semaglutid e.- Ordered refill of semaglutid e from the [facility].- Follow-up appointmen t scheduled for September 13 at 7:45 AM. - Abnormal weight gain 161 184031 R63.5 - Patient is on semaglutid e to address abnormal weight gain.- Monitoring patient's response to semaglutid e; no adverse effects reported.- Patient advised that it may take up to 6 months to see significan t changes.- Encouraged patient to continue current regimen and maintain follow-up appointmen ts.- Next follow-up scheduled for September 13 at 7:45 AM. [facility] ? [email or web address] ? Here are the next steps regarding your [facility] prescripti on: The day after your visit you will receive an email from [employer] to purchase your medication s. We recommend adding this email to your contact list to prevent it from being filtered by spam/junk filters. If you have any questions about how to purchase your order, please use the [employer] email address. ? Please ensure you click the link in the email to confirm the products you'd like. Once you have verified you'd like to receive this product from that email and completed the purchase, you will receive a tracking number via [employer] and your product is on its way to you! ? If you have any questions at any time, please reach out to us here at [facility], we are happy to help. Overweight in adulthood with body mass index of 25 or more but less than 30 301495501 Z68.27 - Patient's weight has decreased to 145 lbs, indicating progress in weight management .- Continue current regimen of semaglutid e 1.5 mg administer ed weekly via subcutaneo us injection. No reported side effects from the medication .- Educated patient on the importance of not only losing weight but also maintainin g strength and overall health.- Next follow-up appointmen t scheduled - [id number] Zully Herzog, TY Main Office [address] [place] [address] 09/13/2024 07:03:06 09/15/2024 04:26:37 Overweight 078281661 E66.3 - Patient's weight is currently stable at approximat josep 150 lbs.- Continue current medication regimen with semaglutid e.- Reordered semaglutid e prescripti on to be sent to [facility].- Follow-up appointmen t scheduled for October 04 at 7:45 AM to monitor weight and overall health status. - - Bacterial vaginosis 4197 15829 N76.0 - Patient reports discharge without pruritus [...] the treatment plan. Abnormal weight gain 161 380969 R63.5 - Patient's weight is currently stable at approximat josep 150 lbs.- Continue monitoring weight and dietary habits.- Reordered semaglutid e prescripti on to assist with weight management .- Follow-up appointmen t scheduled for October 04 at 7:45 AM to reassess weight and discuss any further interventi ons if necessary. [facility] Semaglutid e?htt [email or web address] are the next steps regarding your [facility] prescripti on: The day after your visit you will receive an email from [employer] to purchase your medication s. We recommend adding this email to your contact list to prevent it from being filtered by spam/junk filters. If you have any questions about how to purchase your order, please use the [employer] email address.?Please ensure you click the link in the email to confirm the products you'd like. Once you have verified you'd like to receive this product from that email and completed the purchase, you will receive a tracking number via [employer] and your product is on its way to you!? If you have any questions at any time, please reach out to us here at [facility], we are happy to help. Body mass index 25-29 - overweight [id number] E66.3 - Patient's weight has decreased to 145 lbs, indicating progress in weight management .- Continue current regimen of semaglutid e 1.5 mg administer ed weekly via subcutaneo us injection. No reported side effects from the medication .- Educated patient on the importance of not only losing weight but also maintainin g strength and overall health.- Next follow-up appointmen t scheduled - [id number] Zully Herzog NP Main Office [address] [place] [address] 10/04/2024 07:02:46 10/05/2024 04:15:16 Overweight [id number] E66.3 - Patient's weight has decreased to 149 lbs, indicating progress in weight management .- Continue current regimen of semaglutid e 1.5 mg administer ed weekly via subcutaneo us injection. No reported side effects from the medication .- Educated patient on the importance of not only losing weight but also maintainin g strength and overall health.- Next follow-up appointkasandra landa scheduled for November 15 at 7:30 AM to monitor progress and adjust treatment as necessary. - Abnormal weight gain [id number] R63.5 [facility]ounded Semaglutid e ? [email or web address] ? Here are the next steps regarding your [facility] prescripti on: The day after your visit you will receive an email from [employer] to purchase your medication s. We recommend adding this email to your contact list to prevent it from being filtered by spam/junk filters. If you have any questions about how to purchase your order, please use the [employer] email address. ? Please ensure you click the link in the email to confirm the products you'd like. Once you have verified you'd like to receive this product from that email and completed the purchase, you will receive a tracking number via [employer] and your product is on its way to you! ? If you have any questions at any time, please reach out to us here at [facility], we are happy to help. Overweight in adulthood with body mass index of 25 or more but less than 30 [id number] Z68.26 - Patient's weight has decreased to 145 lbs, indicating progress in weight management .- Continue current regimen of semaglutid e 1.5 mg administer ed weekly via subcutaneo us injection. No reported side effects from the medication .- Educated patient on the importance of not only losing weight but also maintainin g strength and overall health.- Next follow-up appointkasandra landa scheduled - [id number] Zully Herzog NP Main Office [address] [place] [address] 11/15/2024 06:33:41 11/17/2024 04:22:34 Overweight [id number] E66.3 - Patient's weight has decreased to 145 lbs, indicating progress in weight management .- Continue current regimen of semaglutid e 1.5 mg administer ed weekly via subcutaneo us injection. No reported side effects from the medication .- Educated patient on the importance of not only losing weight but also maintainin g strength and overall health.- Next follow-up rocky landa scheduled - Abnormal weight gain [id number] R63.5 [facility]ounded Semaglutid e ? [email or web address] ? Here are the next steps regarding your [facility] prescripti on: The day after your visit you will receive an email from [employer] to purchase your medication s. We recommend adding this email to your contact list to prevent it from being filtered by spam/junk filters. If you have any questions about how to purchase your order, please use the [employer] email address. ? Please ensure you click the link in the email to confirm the products you'd like. Once you have verified you'd like to receive this product from that email and completed the purchase, you will receive a tracking number via SMS and your product is on its way to you! ? If you have any questions at any time, please reach out to [facility] at [facility], we are happy to help. Loss of hair [id number] L 65.9 - Patient reports thinning hair, which she attributes to perimenopa use. Health Concerns Section Related Observation LastModified by Organization Detai ls LastModified Time None Recorded Concern Status LastModified by Organization Details LastModified Time None Recorded Advance Directives Directive None Recorded Payers Insurance Date Sequence Insurance Name Policy Number Policy Bañuelos Covered Member ID Bañuelos Member ID Guarantor Name 11/24/2024 1 [employer] [id number] Savanah Jovel Ayo [id number] Savanah Ayo 11/24/2024 1 [employer] [id number] Savanah Med Ayo [id number] Savanah Ayo 12/05/2024 [employer] [id number] Savanah Jovel Ayo [id number] Savanah Rollins Notes Date Note Type Note Provider Name and Address Organization Details Recorded Time 07/13/2024 text/html Virtual Visit AttestationModality: VideoProvider Location: Home Patient Location: Home Patient State: {{AL AK AZ AR CA CO CT DE DC FL GA HI ID IL IN [place] ANTHONY* ME IN MN MS MO MT NE NV NH [...] Prozac- Probiotic Allergies:- [place] [address] [place], [address], [facility] 07/20/2024 15:50:12 08/17/2024 text/html Virtual Visit AttestationModality: VideoProvider Location: Home Patient Location: Home Patient State: {{AL AK AZ AR CA CO CT DE DC FL GA HI ID IL IN IA [place] LA Jose A* ME IN MN MS MO MT NE NV NH [...] Meds:- Semaglutide- Minoxidil- Norethindrone- Valacyclovir- Prozac Allergies:- NKDA Zully Post, AIRCRAFT MAINTENANCE INSTRUCTOR [address] [place], [place], , [facility] - [employer] 11/23/2024 14:26:06 09/13/2024 text/html Virtual Visit AttestationModality: VideoProvider Location: Home Patient Location: Home Patient State: {{AL AK AZ AR CA CO CT DE DC FL GA HI ID IL IN [place] ANTHONY* MD [place] IN MN MS MO MT NE NV NH [...] Semaglutide- Cefpodoxime- Minoxidil- Norethindrone- Valacyclovir- Prozac Allergies:- NKDA Zully Post, AIRCRAFT MAINTENANCE INSTRUCTOR [address] [place], [address], [facility] - [employer] 11/23/2024 14:28:03 10/04/2024 text/html Virtual Visit AttestationModality: VideoProvider Location: Home Patient Location: Home Patient State: {{AL AK AZ AR CA CO CT DE DC FL GA HI ID IL IN [place] LA M A* ME IN MN MS MO MT NE NV NH [...] Meds:- Semaglutide, weekly- Valacyclovir as needed Allergies:- LYNNETTE Herzog, AIRCRAFT MAINTENANCE INSTRUCTOR [address], [place], [address], [facility] - [employer] 11/23/2024 14:29:13 11/15/2024 text/html Virtual Visit AttestationModality: VideoProvider Location: Home Patient Location: Home Patient State: {{AL AK AZ AR CA CO CT DE DC FL GA HI ID IL IN IA [place] ANTHONY* MD [place] IN MN MS MO MT NE NV NH NJ NM N Y NC ND OH OK OR PA RI SC SD TN TX [facility] [place]}}Cur rently using Bundle D 1.5ml weeklyHighest BMI: 28.7Starting weight: 162 BMI: 28.7Current weight: 145 BMI: 25.7Goal weight: 135Review of nutrition, exercise, sleep, and stress includes: Savanah is a , 49-year-old female with a history of anxiety, hypertension, and fibroids presenting for follow-up on weight management and hair regrowth. Weight Management- Current weight fluctuates between 145-146 lbs.- Reports a weight loss of 17 lbs since last year.- Currently on semaglutide, which she appreciates for reducing food cravings and aiding in intermittent fasting.- Engages in regular exercise with a focus on muscle toning rather than further weight loss.- Comfortable with her current weight range of 135-145 lbs. Hair Regrowth- Noticed hair regrowth and requests a refill of minoxidil. Contraception- Recently started a new 3-month prescription of norethindrone. Past Medical History- Anxiety- Hypertension- Fibroids- Bicornuate uterus Current Medications and Supplements- Semaglutide- Minoxidil- Norethindrone- Valacyclovir- Prozac Past Diagnostic Results- Recent physical exam: Blood pressure was normal.- Pap smear: Up to date.- Mammogram: [place] [address] [place], [address], [facility] - [facility] 11/16/2024 14:25:10 OBGyn Episode No OBEpisode recorded.
--- OUTSIDE RECORDS SUMMARY | 2024-12-08 15:47 | XMS_ITS | Continuity of Care Document ---
Author Organization [facility] Address [address] [place] [address] Phone Care Team Providers Care Photography Intern Name Role Phone Mollitor FRAME ASSEMBLER, Jasmina Craven Unavailab le Allergies, Adverse Reactions, Alerts Substance Reaction Status Criticality DIPHENHYDRAMINE HCL Active No Infor mation Medications Medication Instructions Dosage Effective Dates (start - stop) Status Comments Ines 0.35 mg tablet - Active Procedures Procedure Date Office/Outpt E&M Established 10 Mins- CT & [place] Sngl/mx Inj Scleros-veins; Shirley 25 No Charge [...] Diagnoses Date Provider Providers Copied on Encounter Office/Outpt E&M Established 10 Mins- [place] & [place] [facility], [address] [place] [address] [address], [id number], [place] tel:[phone] CVR - [place] Nevus, non-neoplastic 5 Mollitor FRAME ASSEMBLER Jasmina . [address], [address], [facility], [place], [id number] , [place]. tel: [phone] [facility] [place], [address] [place] [address] [address] [place], [id number], [place] tel:[phone] CVR - [place] Venous insufficiency (chronic) (peripheral) 0 5 Brown SWAIN, RVT, IZZY Silva. [address], [address], [facility], [place], [id number] , [place]. tel: [phone] [facility] [place], [address] [place] [address] [address] [place], [id number], [place] tel:[phone] CVR - [place] Nevus, non-neoplastic 5 Mollitor FRAME ASSEMBLER Jasmina . [address], [address], [facility], [place], [id number] , [place]. tel: [phone] [facility] [place], [address] [place] [address] [address], [id number], [place] tel:[phone] CVR - [place] Nevus, non-neoplastic 5 Mollitor FRAME ASSEMBLER Jasmina . [address], [address], [facility], [place], [id number] , [place]. tel: [phone] [facility] [place], [address] [place] [address] [address] [place], [id number], [place] tel:[phone] CVR [place] Nevus, non-neoplasticP hlebitis and thrombophlebiti s of superficial vessels of lower extremities, bilateral 5 Mollitor FRAME ASSEMBLER Jasmina . [address], [address], [facility], [place], [id number] , [place]. tel: [phone] [facility] [place], [address] [place] [address] [address] [place], [id number], [place] tel:[phone] CVR [place] Nevus, non-neoplastic 5 Mollsaturnino Lazcanoina . [address] [place] [address], Suite [facility], [facility], [id number] , [place]. tel:[phone] [place] [facility], [address] [place] [address] [address] [place], [id number], [place] [phone] CVR [place] Venous insufficiency (chronic) (peripheral) 5 Brown SWAIN RVT, IZZY Silva. [address] [place] [address], Suite [facility], [place], [id number] , [place]. [phone] Referring Provider: Ricardo Dasilva MD, RVT, IZZY, [address] [place] [address], [place], [address] . tel:[phone] Offic Cons New/estab Mod-hi 60- [place] & [place] [facility], [address] [place] [address] [address], [id number], [place] tel:[phone] CVR [place] Lymphedema, not elsewhere classifiedPruri tus, unspecifiedHere ditary lymphedemaVenou s insufficiency (chronic) (peripheral)Nev us, non-neoplastic 5 Brown SWAIN RVT, IZZY Silva. [address] [place] [address], [place], [id number] , [place]. tel:[phone] [place] [facility], [address] [place] [address] [address] [place], [id number], [place] [phone] CVR - [place] Chronic venous hypertension (idiopathic) with other complications of bilateral lower extremity 5 Brown SWAIN RVT, IZZY Silva. [address] [place] [address], Suite [facility], [place], [id number] , [place]. [phone] Referring Provider: Ricardo Dasilva MD, RVT, IZZY, [address] [place] [address] Suite [facility], [place], [address] . tel:[phone] Family History Family Member Type Diagnosis Age At Onset No Information Payers Payer name Insurance type Covered democrat ID Luther correa(s) Self Pay 09 Social History Type Description Quantity Date Captured Comments Alcohol Use Details Unknown Caffeine Use Details Unknown Tobacco Use Status Current non-smoker Smoking Status Never Smoker Non-Smoking Tobacco Use Details : No Details Available : No Details Available Sex Female Vital Signs Date / Time: Height Weight BMI Pulse Rate Blood Pressure Temperature Respiratory Rate Body Surface Area Head Circumference Head Circ. Percentile Wt./[place]. Percentile BMI percentile Pulse Ox Inhaled Ox 69.850 kg (154.00 lbs) 27.3 2 kg/m eter (2) 132/76 mm[Hg] Chief Complaint And Reason For Visit No Information Reason For Referral Reason For Referral No Information Plan Of Treatment Date Type Action Status Goal Diet education completed Goal Diet education completed Goal Diet education [...] Body mass index (BMI) 27.0-27.9, adult) ordered History Of Present Illness Encounter Date Complaint History Of Prese nt Illness No Information Functional Status Date Functional Assessmen t No Information Instructions Date Instruction Additional Infor mation Diet education Related to Body mass index [...] insufficiency (chronic) (peripheral) Assessments Type Assessment Date assessment Nevus, non-neoplastic Patient Care Teams Name Effective Dates (start - stop) Status Members No Information
--- OUTSIDE RECORDS SUMMARY | 2024-12-08 15:47 | XMS_ITS | Encounter Summary ---
Author Organization [facility] Address [address] [place] [address] Phone Care Team Providers Care Route Deliverer Name Role Phone Femi Rodriguez DO Primary Care Provider [phone] Encounter Details Date Type Department Care Team (Latest Contact Info) Description 10/12/2017 Transcribe Orders [facility] [address] [place] [address] Prudence Pride ARNP Pre-employment health screening examination (Primary Dx) Social History Tobacco Use Types Packs/Day Years Used Date Smoking Tobacco: Never Assessed Comments Unknown Sex and Gender Information Value Date Recorded Sex Assigned at Not on file Legal Sex Female 12:09 PM EDT Gender Identity Not on file Sexual Orientation Not on file documented as of this encounter Plan of Treatment Not on file documented as of this encounter Results * T spot TB test (10/12/2017 12:27 PM EDT) T SPOT Tuberculosis Negative [facility] Blood 10/12/2017 12:2 7 PM EDT 10/12/2017 12:30 PM EDT us Prudence [facility] BLOOD ORDERABLES Final Result [address] [address] documented in this encounter Visit Diagnoses Diagnosis Pre-employment health screening examination- Primary Health examination of defined subpopulation documented in this encounter Care Teams Route Deliverer Relationship Specialty Start Date End Date Femi Rodriguez DO [address] [place] [address] PCP - General Internal Medicine 10/12/17 documented as of this encounter Additional Source Comments The information contained in this document represents components of the legal health record. It is not the complete legal health record.[facility]
== END 2024-12-08 15:45 | disposition home or self-care (01) ==
LOC: HO.MAMMO 15:44
PROVIDERS: PCP Physician Assistant; Visit Provider Physician Assistant
DX: Z12.31 Encounter for screening mammogram for malignant neoplasm of breast (principal)
CPT/HCPCS: 77063; 77067

== ENCOUNTER → 2024-12-08 16:00 | Outpatient (BNV) | payer OTHER, SELFPAY | PROVIDERS: PCP Physician Assistant; Visit Provider Internal Medicine | DX: Z12.31 Encounter for screening mammogram for malignant neoplasm of breast (principal) | CPT/HCPCS: 77063; 77067 ==